=== PATIENT | male | born 1955 | race Caucasian/White ===

== ENCOUNTER 2021-05-24 09:51 | Emergency (ER) | payer BC, OTHER ==
[2021-05-24] MEDS ORDERED: NA CHLORIDE 0.9% 1,000 ML ONE ×2 (11:13→13:21)
[2021-05-24] MEDS ORDERED: FAMOTIDINE 20 MG/2 ML VIAL IV ONE (11:13)
[2021-05-24 11:17] LABS: Absolute Lymphocytes (CBC) 0.9 K/uL (0.7-4.9); Basophils % 0.6 % (0-1.3); Hematocrit 45.3 % (39.6-49.0); MPV 7.8 fL (7.6-11.3); RBC Red Blood Cell Count 4.96 M/uL (4.33-5.43)
[2021-05-24 11:30] LABS: ALT/SGPT 27 U/L (12-78); AST/SGOT 18 U/L (15-37); Albumin 3.5 g/dL (3.4-5.0); Alkaline Phosphatase 81 U/L (45-117); BUN Blood Urea Nitrogen 16 mg/dL (7-18); Bicarbonate 24 mmol/L (21-32); Bilirubin Direct 0.1 mg/dL (0-0.2); Bilirubin Total 0.5 mg/dL (0.2-1.0); Ferritin 226.1 ng/mL (26-388); Glucose Level 107 mg/dL (74-106); Magnesium 2.3 mg/dL (1.8-2.4); NT PRO-BNP 151 pg/mL (<125); Potassium 3.5 mmol/L (3.5-5.1); Protein, Total 7.7 g/dL (6.4-8.2); Sodium Level 135 mmol/L (136-145); Troponin (Emerg Dept Use Only) < 0.02 ng/mL (0.0-0.045)
[2021-05-24 12:08] LABS: Urine Blood Negative (Negative); Urine Glucose Negative (Negative); Urine Protein Negative (Negative)
[2021-05-24] MEDS ORDERED: CEFTRIAXONE/SWI 1gm 1 GM/10 ML SYR ONE (12:37)
[2021-05-24] MEDS ORDERED: AZITHROMYCIN 250 MG TAB ONE (12:39)
--- NOTE | 2021-05-24 13:01 | RAD REPORT ---
EXAM DESCRIPTION: Shanae Single View05/24/2021 12:31 pm CLINICAL HISTORY: cough COMPARISON: none FINDINGS: The lungs appear clear of acute infiltrate. The heart is normal size IMPRESSION: No acute abnormalities displayed
[2021-05-24] MEDS ORDERED: ACETAMINOPHEN 500 MG TAB ONE (13:04)
[2021-05-24] MEDS ORDERED: AMOX/K CLAV 875 MG TAB ONE (13:21)
--- NOTE | 2021-05-24 13:27 | ER ---
Nurse's Notes [facility] Name: Pankaj Schwartz Age: 66 yrs Sex: Male : 1955 Arrival Date: 05/24/2021 Time: 09:54 Bed 11 Private MD: Diagnosis: Fever, unspecified;Acute upper respiratory infection, unspecified;Elevated white blood cell count;Contact with and (suspected) exposure to other viral communicable diseases-Covid;Diarrhea, unspecified;Acute pharyngitis, unspecified Presentation: 05/24 10:24 Chief complaint: Patient states: Last night had chills, loss of appetite, sore throat, vg1 cough and headache. This morning had an episode of diarrhea. Coronavirus screen: Client denies travel out of the [place] in the last 14 days. Client presents with at least one sign or symptom that may indicate coronavirus-19. Standard/surgical mask placed on the client. Ebola Screen: Patient negative for fever greater than or equal to 101.5 degrees Fahrenheit, and additional compatible Ebola Virus Disease symptoms. Initial Sepsis Screen: Does the patient meet any 2 criteria? No. Patient's initial sepsis screen is negative. Does the patient have a suspected source of infection? No. Patient's initial sepsis screen is negative. Risk Assessment: Do you want to hurt yourself or someone else? Patient reports no desire to harm self or others. Onset of symptoms was May 23, 2021. 10:24 Method Of Arrival: Ambulatory vg1 10:24 Acuity: ABRAHAM 3 vg1 Triage Assessment: 10:26 General: Appears in no apparent distress. comfortable, Behavior is calm, cooperative. vg1 Pain: Complains of pain in whole body Pain currently is 7 out of 10 on a pain scale. Quality of pain is described as aching, Pain began 1 day ago. EENT: Reports sore throat. Neuro: Level of Consciousness is awake, alert, obeys commands, Oriented to person, place, time, situation. Cardiovascular: Patient's skin is warm and dry. Respiratory: Airway is patent Respiratory effort is even, unlabored, Breath sounds are clear bilaterally. GI: Reports diarrhea, since yesterday. : No signs and/or symptoms were reported regarding the genitourinary system. Derm: Skin is intact, is healthy with good turgor. Musculoskeletal: Circulation, motion, and sensation intact. Historical: - Allergies: 10:26 No Known Allergies; vg1 - Home Meds: 10:26 Hydrochlorothiazide Oral [Active]; vg1 - PMHx: 10:26 Hypertensive disorder; vg1 - Immunization history:: Adult Immunizations up to date, Client reports receiving the 2nd dose of the Covid vaccine. - Social history:: Smoking status: Patient denies any tobacco usage or history of. Screenin:29 Abuse screen: Denies threats or abuse. Nutritional screening: No deficits noted. vg1 Tuberculosis screening: No symptoms or risk factors identified. Fall Risk No fall in past 12 months (0 pts). No secondary diagnosis (0 pts). IV access (20 points). Ambulatory Aid- None/Bed Rest/Nurse Assist (0 pts). Gait- Normal/Bed Rest/Wheelchair (0 pts) Mental Status- Oriented to own ability (0 pts). Total Escobar Fall Scale indicates No Risk (0-24 pts). Assessment: 10:28 Reassessment: see triage. vg1 12:00 Reassessment: Patient appears in no apparent distress at this time. No changes from vg1 previously documented assessment. Patient and/or family updated on plan of care and expected duration. Pain level reassessed. Patient is alert, oriented x 3, equal unlabored respirations, skin warm/dry/pink. 12:35 Reassessment: pt states chills and body aches, rates pain 4/10. Provider notified. vg1 12:37 Reassessment: Received VO from Dr Hylton to administer 1g of Tylenol PO x1. vg1 Vital Signs: 10:24 BP 115 / 90; Pulse 80; Resp 18; Temp 99.0; Pulse Ox 97% ; Weight 104.33 kg; Height 5 vg1 ft. 10 in. (177.80 cm); Pain 7/10; 12:00 BP 126 / 109; Pulse 80; Resp 18; Pulse Ox 97% ; vg1 12:35 BP 119 / 91; Pulse 84; Resp 20; Temp 101.2; Pulse Ox 98% on R/A; Pain 4/10; vg1 13:00 BP 128 / 83; Pulse 78; Resp 22; Pulse Ox 97% ; vg1 13:41 Temp 100.3; vg1 13:45 Temp 100.3; vg1 10:24 Body Mass Index 33.00 (104.33 kg, 177.80 cm) vg1 ED Course: 09:54 Patient arrived in ED. as 10:22 Misbah Hylton MD is Attending Physician. clem 10:24 Jessie Ku, RN is Primary Nurse. vg1 10:26 Triage completed. vg1 10:29 Patient has correct armband on for positive identification. Bed in low position. Call vg1 light in reach. Side rails up X 1. 10:29 Arm band placed on. vg1 10:45 Initial lab(s) drawn, by me, sent to lab. Inserted saline lock: 20 gauge in right vg1 forearm, using aseptic technique. Blood collected. 10:45 COVID swab sent to lab. Flu and/or RSV swab sent to lab. vg1 12:20 Strep swab sent to lab. vg1 12:25 First set of blood cultures drawn by me. vg1 12:30 Chest Single View XRAY In Process Unspecified. EDMS 12:40 Second set of blood cultures drawn by ED staff. vg1 13:26 Aubrey Couch MD is Referral Physician. [facility] 13:41 No provider procedures requiring assistance completed. IV discontinued, intact, vg1 bleeding controlled, No redness/swelling at site. Pressure dressing applied. Administered Medications: 11:03 Drug: NS 0.9% 500 ml Route: IV; Rate: bolus; Site: right forearm; vg1 12:15 Follow up: IV Status: Completed infusion; IV Intake: 500ml vg1 11:05 Drug: Pepcid (famotidine) 20 mg Route: IVP; Site: right forearm; vg1 13:46 Follow up: Response: No adverse reaction vg1 12:15 Drug: NS 0.9% 1000 ml Route: IV; Rate: 125 ml/hr; Site: right forearm; vg1 13:46 Follow up: IV Status: Completed infusion; IV Intake: 1000ml vg1 12:29 Drug: Zithromax (azithromycin) 500 mg Route: PO; vg1 13:45 Follow up: Response: No adverse reaction vg1 12:30 Drug: Rocephin (cefTRIAXone) 2 grams Route: IV; Rate: per protocol; Site: right forearm;vg1 13:06 Follow up: Response: No adverse reaction vg1 13:45 Follow up: IV Status: Completed infusion; IV Intake: 10ml vg1 12:44 Drug: Tylenol 1000 mg Route: PO; vg1 13:45 Follow up: Temp 100.3; Response: No adverse reaction vg1 13:00 Drug: NS 0.9% 1000 ml Route: IV; Rate: 1 bolus; Site: right forearm; vg1 13:46 Follow up: IV Status: Completed infusion; IV Intake: 500ml vg1 13:01 Drug: Augmentin (Amoxicillin-Clavulanate) 875 mg Route: PO; vg1 13:45 Follow up: Response: No adverse reaction vg1 Intake: 12:15 IV: 500ml; Total: 500ml. vg1 13:45 IV: 10ml; Total: 510ml. vg1 13:46 IV: 500ml; Total: 1010ml. vg1 13:46 IV: 1000ml; Total: 2010ml. vg1 Outcome: 13:26 Discharge ordered by . clem 13:44 Discharged to home ambulatory. vg1 13:44 Condition: stable 13:44 Discharge instructions given to patient, Instructed on discharge instructions, follow up and referral plans. medication usage, Demonstrated understanding of instructions, follow-up care, medications, Prescriptions given X 3. 13:45 Patient left the ED. vg1 Signatures: Dispatcher [employer] Misbah Gotti MD MD cha Martinez, Amelia as Garcia, Victoria, RN RN vg1
--- NOTE | 2021-05-24 13:27 | EDPHYS ---
Physician Documentation [facility] Name: Pankaj Schwartz Age: 66 yrs Sex: Male : 1955 Arrival Date: 05/24/2021 Time: 09:54 Bed 11 Private MD: LUIS CARLOS Physician Misbah Hylton HPI: 05/24 10:47 This 66 yrs old Male presents to ER via Ambulatory with complaints of r/o clem covid. 10:47 cough , malaise. Onset: The symptoms/episode began/occurred 2 day(s) ago. Severity of clem symptoms: At their worst the symptoms were mild in the emergency department the symptoms are unchanged. The patient has not experienced similar symptoms in the past. Historical: - Allergies: 10:26 No Known Allergies; vg1 - Home Meds: 10:26 Hydrochlorothiazide Oral [Active]; vg1 - PMHx: 10:26 Hypertensive disorder; vg1 - Immunization history:: Adult Immunizations up to date, Client reports receiving the 2nd dose of the Covid vaccine. - Social history:: Smoking status: Patient denies any tobacco usage or history of. ROS: 10:48 Constitutional: Negative for fever, chills, and weight loss, Eyes: Negative for injury, clem pain, redness, and discharge, ENT: Negative for injury, pain, and discharge, Neck: Negative for injury, pain, and swelling, Cardiovascular: Negative for chest pain, palpitations, and edema, Respiratory: Negative for shortness of breath, cough, wheezing, and pleuritic chest pain, Back: Negative for injury and pain, : Negative for injury, bleeding, discharge, and swelling, MS/Extremity: Negative for injury and deformity, Skin: Negative for injury, rash, and discoloration, Neuro: Negative for headache, weakness, numbness, tingling, and seizure, Psych: Negative for depression, anxiety, suicide ideation, homicidal ideation, and hallucinations, Allergy/Immunology: Negative for hives, rash, and allergies, Endocrine: Negative for neck swelling, polydipsia, polyuria, polyphagia, and marked weight changes, Hematologic/Lymphatic: Negative for swollen nodes, abnormal bleeding, and unusual bruising. 10:48 Abdomen/GI: Positive for diarrhea. Exam: 10:48 Constitutional: This is a well developed, well nourished patient who is awake, alert, clem and in no acute distress. Head/Face: Normocephalic, atraumatic. Eyes: Pupils equal round and reactive to light, extra-ocular motions intact. Lids and lashes normal. Conjunctiva and sclera are non-icteric and not injected. Cornea within normal limits. Periorbital areas with no swelling, redness, or edema. ENT: Nares patent. No nasal discharge, no septal abnormalities noted. Tympanic membranes are normal and external auditory canals are clear. Oropharynx with no redness, swelling, or masses, exudates, or evidence of obstruction, uvula midline. Mucous membranes moist. Neck: Trachea midline, no thyromegaly or masses palpated, and no cervical lymphadenopathy. Supple, full range of motion without nuchal rigidity, or vertebral point tenderness. No Meningismus. Chest/axilla: Normal chest wall appearance and motion. Nontender with no deformity. No lesions are appreciated. Cardiovascular: Regular rate and rhythm with a normal S1 and S2. No gallops, murmurs, or rubs. Normal PMI, no JVD. No pulse deficits. Respiratory: Lungs have equal breath sounds bilaterally, clear to auscultation and percussion. No rales, rhonchi or wheezes noted. No increased work of breathing, no retractions or nasal flaring. Abdomen/GI: Soft, non-tender, with normal bowel sounds. No distension or tympany. No guarding or rebound. No evidence of tenderness throughout. Back: No spinal tenderness. No costovertebral tenderness. Full range of motion. Male : Normal genitalia with no discharge or lesions. Skin: Warm, dry with normal turgor. Normal color with no rashes, no lesions, and no evidence of cellulitis. MS/ Extremity: Pulses equal, no cyanosis. Neurovascular intact. Full, normal range of motion. Neuro: Awake and alert, GCS 15, oriented to person, place, time, and situation. Cranial nerves II-XII grossly intact. Motor strength 5/5 in all extremities. Sensory grossly intact. Cerebellar exam normal. Normal gait. Psych: Awake, alert, with orientation to person, place and time. Behavior, mood, and affect are within normal limits. 11:03 ECG was reviewed by the Attending Physician. [facility] Vital Signs: 10:24 BP 115 / 90; Pulse 80; Resp 18; Temp 99.0; Pulse Ox 97% ; Weight 104.33 kg; Height 5 vg1 ft. 10 in. (177.80 cm); Pain 7/10; 12:00 BP 126 / 109; Pulse 80; Resp 18; Pulse Ox 97% ; vg1 12:35 BP 119 / 91; Pulse 84; Resp 20; Temp 101.2; Pulse Ox 98% on R/A; Pain 4/10; vg1 13:00 BP 128 / 83; Pulse 78; Resp 22; Pulse Ox 97% ; vg1 13:41 Temp 100.3; vg1 13:45 Temp 100.3; vg1 10:24 Body Mass Index 33.00 (104.33 kg, 177.80 cm) vg1 MDM: 10:22 Patient medically screened. [facility] 10:49 Differential diagnosis: Nonspecific abd pain, viral gastroenteritis, gastroenteritis. [facility] Data reviewed: vital signs, EMS record, lab test result(s), EKG, radiologic studies, plain films. Data interpreted: personnel monitor: rate is 80 beats/min, rhythm is regular, Pulse oximetry: on room air is 97 %. Test interpretation: by ED physician or midlevel provider: ECG, plain radiologic studies. Counseling: I had a detailed discussion with the patient and/or guardian regarding: the historical points, exam findings, and any diagnostic results supporting the discharge/admit diagnosis, lab results, radiology results. 05/24 10:40 Order name: Basic Metabolic Panel [facility] 05/24 10:40 Order name: CBC with Diff [facility] 05/24 10:40 Order name: LFT's [facility] 05/24 10:40 Order name: Magnesium [facility] 05/24 10:40 Order name: NT PRO-BNP [facility] 05/24 10:40 Order name: Troponin (emerg Dept Use Only) [facility] 05/24 10:40 Order name: Sed Rate [facility] 05/24 10:40 Order name: Ferritin; Complete Time: 11:42 [facility] 05/24 10:40 Order name: CRP; Complete Time: 11:42 [facility] 05/24 10:40 Order name: Flu; Complete Time: 11:42 [facility] 05/24 10:40 Order name: Basic Metabolic Panel; Complete Time: 11:42 [facility] 05/24 10:40 Order name: CBC with Automated Diff; Complete Time: 12:12 [facility] 05/24 10:40 Order name: Liver (Hepatic) Function; Complete Time: 11:42 [facility] 05/24 10:40 Order name: Magnesium; Complete Time: 11:42 [facility] 05/24 10:40 Order name: NT PRO-BNP; Complete Time: 11:42 [facility] 05/24 10:40 Order name: Troponin (Emerg Dept Use Only); Complete Time: 11:42 [facility] 05/24 10:40 Order name: Sedimentation Rate, Westergren; Complete Time: 12:12 [facility] 05/24 11:43 Order name: Urine Culture [facility] 05/24 11:54 Order name: SARS-COV-2 RT PCR; Complete Time: 11:55 [facility] 05/24 11:54 Order name: Chest Single View XRAY; Complete Time: 13:25 [facility] 05/24 11:55 Order name: Blood Culture Adult (2) [facility] 05/24 11:55 Order name: Lactate [facility] 05/24 11:55 Order name: Strep; Complete Time: 12:51 [facility] 05/24 11:55 Order name: Blood Culture [facility] 05/24 12:08 Order name: Urine Dipstick-Ancillary; Complete Time: 12:12 [facility] 05/24 12:51 Order name: Throat Culture [facility] 05/24 10:40 Order name: EKG; Complete Time: 10:40 [facility] 05/24 10:40 Order name: Cardiac monitoring; Complete Time: 11:07 [facility] 05/24 10:40 Order name: EKG - Nurse/Tech; Complete Time: 11:07 [facility] 05/24 10:40 Order name: IV Saline Lock; Complete Time: 10:51 [facility] 05/24 10:40 Order name: Labs collected and sent; Complete Time: 10:51 [facility] 05/24 10:40 Order name: O2 Per Protocol; Complete Time: 10:51 [facility] 05/24 10:40 Order name: O2 Sat Monitoring; Complete Time: 10:51 [facility] 05/24 11:43 Order name: Urine Dipstick-Ancillary (obtain specimen); Complete Time: 12:15 [facility] EC:03 Rate is 74 beats/min. Rhythm is regular. QRS [place] is Normal. MD interval is normal. QRS clem interval is normal. QT interval is normal. No Q waves. T waves are Normal. No ST changes noted. Clinical impression: NSR w/ Non-specific ST/T Changes and No evidence of ischemia. Interpreted by me. Reviewed by me. Administered Medications: 11:03 Drug: NS 0.9% 500 ml Route: IV; Rate: bolus; Site: right forearm; vg1 12:15 Follow up: IV Status: Completed infusion; IV Intake: 500ml vg1 11:05 Drug: Pepcid (famotidine) 20 mg Route: IVP; Site: right forearm; vg1 13:46 Follow up: Response: No adverse reaction vg1 12:15 Drug: NS 0.9% 1000 ml Route: IV; Rate: 125 ml/hr; Site: right forearm; vg1 13:46 Follow up: IV Status: Completed infusion; IV Intake: 1000ml vg1 12:29 Drug: Zithromax (azithromycin) 500 mg Route: PO; vg1 13:45 Follow up: Response: No adverse reaction vg1 12:30 Drug: Rocephin (cefTRIAXone) 2 grams Route: IV; Rate: per protocol; Site: right forearm;vg1 13:06 Follow up: Response: No adverse reaction vg1 13:45 Follow up: IV Status: Completed infusion; IV Intake: 10ml vg1 12:44 Drug: Tylenol 1000 mg Route: PO; vg1 13:45 Follow up: Temp 100.3; Response: No adverse reaction vg1 13:00 Drug: NS 0.9% 1000 ml Route: IV; Rate: 1 bolus; Site: right forearm; vg1 13:46 Follow up: IV Status: Completed infusion; IV Intake: 500ml vg1 13:01 Drug: Augmentin (Amoxicillin-Clavulanate) 875 mg Route: PO; vg1 13:45 Follow up: Response: No adverse reaction vg1 Disposition Summary: 05/24/21 13:26 Discharge Ordered Location: Home clem Problem: new clem Symptoms: have improved clem Condition: Stable clem Diagnosis - Fever, unspecified clem - Acute upper respiratory infection, unspecified clem - Elevated white blood cell count clem - Contact with and (suspected) exposure to other viral communicable diseases - Covid clem - Diarrhea, unspecified clem - Acute pharyngitis, unspecified clem Followup: clem - With: Private Physician - When: 2 - 3 days - Reason: Recheck today's complaints, Continuance of care, Re-evaluation by your physician Followup: clem - With: - When: 2 - 3 days - Reason: Recheck today's complaints, Re-evaluation by your physician Discharge Instructions: - Discharge Summary Sheet clem - Food Choices to Help Relieve Diarrhea, Adult clem - Diarrhea, Adult clem - Fever, Adult clem - Upper Respiratory Infection, Adult clem - Cool Mist Vaporizer clem - Upper Respiratory Infection, Adult, [id number] clem - Diarrhea, Adult, [id number]-cr-[id number] clem - COVID-19 [facility] Forms: - Medication Reconciliation Form [facility] - Thank You Letter clem - Antibiotic Education clem - Prescription Opioid Use [facility] - Work release form vg1 Prescriptions: - Pepcid 20 mg Oral Tablet - take 1 tablet by ORAL route every 12 hours for 15 days; 30 tablet; Refills: 0, [facility] Product Selection Permitted - Zithromax 500 mg Oral Tablet - take 1 tablet by ORAL route once daily for 5 days; 5 tablet; Refills: 0, [facility] Product Selection Permitted - Augmentin 875-125 mg Oral Tablet - take 1 tablet by ORAL route every 12 hours for 7 days; 14 tablet; Refills: 0, [facility] Product Selection Permitted Signatures: Dispatcher [employer] EDMisbah Dozier MD MD cha Garcia, Victoria, RN RN vg1 Corrections: (The following items were deleted from the chart) 11:02 10:40 Chest Single View+RAD.RAD.BRZ ordered. EDMS EDMS 11:03 10:40 CORONAVIRUS+MR.LAB.BRZ ordered. EDMS EDMS
[2021-05-24 13:55] VITALS: BP 128/83; O2SAT 97
[2021-05-24 13:56] VITALS: TEMP 100.3
--- NOTE | 2021-05-25 10:42 | EKG ---
Test Date: 2021-05-24 Test Time: 10:59:10 Qa Intern: JIMENEZ MEASUREMENT RESULTS: Intervals: Rate: 74 [place]: 146 QRSD: 150 QT: 440 QTc: 488 [place]: P: 59 [place]: 146 QRS: -68 T: 34 INTERPRETIVE STATEMENTS: Normal sinus rhythm Left axis deviation Right bundle branch block Abnormal ECG No previous ECG available for comparison Electronically Signed On 05-25-21 10:39:56 CDT by Oleg Diana
== END 2021-05-24 13:45 | disposition home or self-care (01) ==
LOC: ER 09:51
DX: J06.9 Acute upper respiratory infection, unspecified (principal); D72.829 Elevated white blood cell count, unspecified; R19.7 Diarrhea, unspecified; J02.9 Acute pharyngitis, unspecified; I10 Essential (primary) hypertension; Z20.822 Contact with and (suspected) exposure to COVID-19
CPT/HCPCS: 96365; 96361; 93005; 87040 ×2; 87070; 87088; 85025; 87086; 80048; 36415; 83735; 80076; 87081; 83605; 85652; 81003; 84484; 82728; 83880; 86140; 87804 ×2; 71045; 96375; 99284; U0003; J0696; J7030 ×2

== ENCOUNTER 2025-01-06 13:05 | Inpatient (IN) | payer OTHER ==
--- OUTSIDE RECORDS SUMMARY | 2025-01-06 13:09 | XMS REPORT | Continuity of Care Document ---
Author Name Unknown Address [address] [facility]. [address] [place] [address] [facility] Address [address] [facility] [address] [place] [address] Care Team Providers Care Neurology Physician Name Role Phone Suki Rasmussen Primary Care Physician [phone] Suki Salas Attending Clinician Unavailable OTIS HARRIS Attending Clinician Unavailable Otis Harris MD Attending Clinician [phone] Doctor Unassigned, [place] Attending Clinician U kaylee Nurse, [facility] Surgery Gu Attending Clinician Unadonna montgomery Pob, [facility] Lab Main Attending Clinician UnavailEULOGIO Srinivasan Attending Clinician Unavail able Eulogio Ya DPM Attending Clinician [phone] ANSLEY DOMINGUEZ Attending Clinician UnavailJORGE Delgado Attending Clinician Treasure Jorge Miller MD Attending Clinician Doctor Unassigned, [place] Attending Clinician U BHAKTI Barnhart Attending Clinician Unavailable Bhakti Schrader Attending Clinician [phone] Unknown, Attending Attending Clinician UnavailOtis Sanchez MD Attending Clinician [phone], [facility] Attending Clinician Unavailable SALMA DAILEY Attending Clinician Unavailabl Salma Larios Attending Clinician [phone] Darby Dueñas Attending Clinician [phone] DARBY AGARWAL Attending Clinician Unavailable TRESA TATE Attending Clinician Unavailable Tresa Tate PA-C Attending Clinician Ansley Tong Attending Clinician [phone] Jorge Rosales MD Attending Clinician Lab, Ang - Dereck Attending Clinician Unavailable AMBREENTERAA Attending Clinician Unavailable OTIS HARRIS Admitting Clinician Unavailable Otis Harris MD Admitting Clinician [phone] ANSLEY DOMINGUEZ Admitting Clinician Unavaila mir TORREZ Admitting Clinician Unavailable Payers Payer Name Policy Type Policy Number Effective Date Expirati on Date Source [employer] MEDICARE ADV PPO [id number] 2024 00:00:00 [employer] MEDICARE OON Medicare [id number] 2022 00:00:00 Problems Condition Name Condition Details Condition Category Status Onset Date Resolution Date Last Treatment Date Treating Clinician Comments Source 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 Disease Active 2023-10 00:00: 00 [facility] [id number] Post-traum atic osteoarthr itis, left ankle and foot Problem [facility] 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 Problem [facility] Acquired hallux rigidus Hallux rigidus, left foot Problem [facility] Allergies, Adverse Reactions, Alerts Allergy Name Allergy Type Status Severity Reaction(s) Onset Date Inactive Date Treating Clinician Comments Source NO KNOWN ALLERGIE S Drug Class Active [facility] Social History Social Habit Start Date Stop Date Quantity Comments Source Gender identity Jayesh bayron Iglesias Sexual orientation M emobayron Iglesias Sex Assigned At [facility] History of tobacco use Cigar Smoker [facility] Alcoholic beverage intake 2024-09-21 00:00:00 2024-09-21 00:00:00 2.14 /d [facility] Tobacco use and exposure 2024-09-13 00:00:00 2024-09-13 00:00:00 Smokeless tobacco non-user [facility] Alcohol intake 2023-12-27 00:00:00 2023-12-27 00:00:00 2.14 /d [facility] History of Social function 2023-08-18 00:00:00 2023-08-18 00:00:00 [facility] Exposure to SARS-CoV-2 (event) 2023-02-07 00:00:00 2023-02-17 15:34:00 Not sure [facility] Cigarettes smoked current (pack per day) - Reported 2023-01-18 00:00:00 2023-01-18 00:00:00 [facility] Smoking Status Start Date Stop Date Source Tobacco smoking consumption unknown [facility] Occasional tobacco smoker 2024-09-13 00:00:00 [facility] Never Smoker [facility] Ex-smoker 2024-02-24 00:00:00 2024-02-24 00:00:00 [facility] Medications Ordered Medication Name Filled Medication Name Start Date Stop Date Current Medication? Ordering Clinician Indication Dosage Frequency Signature (SIG) Comments Components Source tamsulosin 0.4 mg 24 hr capsule 11-30 00:00: 00 Yes [id number] 01 .4mg Take 1 capsule by mouth every morning and evening. [facility] lactated ringers IV infusion 500 mL 2023-10 16:00: 00 09-20 19:01 :41 No 500mL at 42 mL/hr, 500 mL, IV Infusion, CONTINUOUS , Starting on Wed09/20/24 at 1000, Until Wed09/20/24 at 1301, Routine, PACU [facility] FENTanyl (PF) (SUBLIMAZE) injection 25 mcg 2023-10 15:56: 36 09-20 19:01 :41 No 25ug 25 mcg, Slow IV Push, Q5MIN PRN, 4 doses, Starting on Wed09/20/24 at 0956, Until Wed09/20/24 at 1301, Routine, Pain (scale 7-10), PACU [facility] ondansetron (ZOFRAN (PF)) injection 4 mg 2023-10 15:56: 33 09-20 19:01 :41 No 4mg 4 mg, Slow IV Push, Q4HPRN, 1 dose, Starting on Wed09/20/24 at 0956, Until Wed09/20/24 at 1301, Administer over 2-5 Minutes, 2 mL, DSU Recovery [facility] lidocaine (XYLOCAINE) 2 % jelly URO-JET 2023-10 15:18: 00 09-20 16:00 :01 No PRN, Starting on Wed09/20/24 at 0918, Until Wed09/20/24 at 1000, Routine, Intra-op [facility] sodium chloride 0.9 % irrigation solution 2023-10 14:54: 00 09-20 16:00 :01 No PRN, Starting on Wed09/20/24 at 0854, Until Wed09/20/24 at 1000, Intra-op [facility] cephALEXin 250 mg capsule 2023-10 00:00: 00 09-26 05:59 :00 No [id number] 500mg Take 2 capsules by mouth every 12 (twelve) hours for 5 days. [facility] tamsulosin 0.4 mg 24 hr capsule 2023-10-19 00:00: 00 11-27 00:00 :00 No [id number] 01 .4mg Take 1 capsule by mouth every morning and evening. [facility] tamsulosin 0.4 mg 24 hr capsule 8-28 00:00: 00 08-21 00:00 :00 No .4mg Take 1 capsule by mouth every morning and evening. [facility] dexamethaso ne (DECADRON) injection 10 mg 6-04 22:15: 00 03-07 21:17 :00 No [id number] 10mg [facility]iver [facility] ketorolac (TORADOL) injection 30 mg 03-07 22:00: 00 03-07 21:14 :00 No [id number] 30mg [facility] iopamidol (ISOVUE 370-500 mL) injection 120 mL 03-02 21:15: 00 03-02 20:25 :00 No [id number] 120mL 120 mL, Intravenou s, ONCE, 1 dose, On Wed03/02/24 at 1615, [facility]ine [facility] mg tablet 03-01 11:56: 16 09-20 00:00 :00 No 500mg Take 1 tablet by mouth 4 (four) times daily. [facility] ketorolac (TORADOL) injection 30 mg 02-28 16:15: 02-28 15:36 :00 No [id number] 30mg 30 mg, Intramuscu lar, ONCE, 1 dose, On Wed02/29/24 at 1115, Routine [facility] tamsulosin 0.4 mg 24 hr capsule 02-28 00:00: 00 Yes .4mg Take 1 capsule by mouth every morning and evening. [facility] traMADoL 50 mg tablet 02-28 00:00: 00 03-04 04:59 :00 No [id number] 50mg Take 1 tablet by mouth every 6 (six) hours as needed for Pain (scale 4-6) for up to 3 days. Indication s: acute pain [facility] mupirocin 2 % ointment 02-23 00:00: 00 03-06 04:59 :00 No [id number] Apply to area(s) 3 (three) times daily for 10 days. [facility] cephALEXin 500 mg capsule 02-23 00:00: 00 03-01 04:59 :00 No [id number] 500mg Take 1 capsule by mouth 4 (four) times daily for 5 days. [facility] losartan 25 mg tablet 12 00:00: 00 Yes 25mg Take 1 tablet by mouth in the morning. [facility] ketorolac (TORADOL) injection 30 mg 01-06 17:45: 00 01-06 17:06 :00 No [id number] 30mg 30 mg, Intramuscu lar, ONCE, 1 dose, On Wed01/07/24 at 1245, Routine [facility] dexamethaso ne sod phos PF injection 10 mg 01-06 17:45: 00 01-06 17:17 :00 No [id number] 10mg 10 mg, Intramuscu lar, ONCE, 1 dose, On Wed01/07/24 at 1245, 1 mL [facility] ibuprofen 800 mg tablet 01-06 11:44: 34 Yes 800mg Take 1 tablet by mouth in the morning and 1 tablet in the evening. [facility] predniSONE 20 mg tablet -25 00:00: 00 Yes [id number] Take one tablet daily for 5 days, then take half tablet daily for 6 days. [facility] Bactrim DS 800-160 MG Bactrim DS 800-160 MG 3-19 00:00: 00 No 1{table t} Bactrim DS 800-160 MG ibuprofen 800 mg tablet 2-21 16:20: 21 Yes 800mg Take 1 tablet by mouth in the morning and 1 tablet in the evening. [facility] gabapentin 100 mg capsule 2-12 00:00: 00 Yes 100mg Take 1 capsule by mouth in the morning and 1 capsule in the evening. [facility] TAMSULOSIN 0.4 mg 24 hr capsule 1-02 00:00: 00 02-28 00:00 :00 No [id number] 01 .4mg TAKE 1 CAPSULE IN THE MORNING AND EVENING [facility] iopamidol (ISOVUE 370-500 mL) injection 120 mL 2022-10 0 19:00: 00 07-26 18:51 :00 No [id number] 120mL 120 mL, Intravenou s, ONCE, 1 dose, On Wed07/26/23 at 1400, Routine [facility] gentamicin injection 160 mg 2022-10 017 14:15: 00 07-20 14:12 :00 No [id number] 160mg Univer [facility] iopamidol (ISOVUE 370-500 mL) injection 100 mL 05-03 14:25: 00 05-03 14:31 :00 No [id number] 100mL 100 mL, Intravenou s, ONCE, 1 dose, On Wed05/03/23 at 0945, Routine [facility] tamsulosin (FLOMAX) 0.4 mg 24 hr capsule 02-17 00:00: 00 10-05 00:00 :00 No [id number] 01 .4mg Take 1 capsule by mouth in the morning and 1 capsule in the evening. [facility] ibuprofen 800 mg tablet 01-18 08:19: 48 Yes 800mg Take 1 tablet by mouth in the morning and 1 tablet in the evening. [facility] famotidine 20 mg tablet 01-07 00:00: 00 01-18 00:00 :00 No 1 tablet Orally 3 times a day for 30 days [facility] atorvastati n 80 mg tablet 05-05 00:00: 00 Yes 80mg Take 1 tablet by mouth in the morning. [facility] hydroCHLORO thiazide 25 mg tablet 04-09 00:00: 00 Yes 12.5mg Take 0.5 tablets by mouth in the morning. [facility] Cefdinir 300 MG Cefdinir 300 MG No Cefdinir 300 MG IBU 800 MG IBU 800 MG No IBU 800 MG Vital Signs Vital Name Observation Time Observation Value Comments S [facility] Heart rate 2024-09-20 16:30:00 65 /min [facility] Oxygen saturation in Arterial blood by Pulse oximetry 2024-09-20 16:30:00 95 /min [facility] Systolic blood pressure 2024-09-20 16:25:00 163 mm[Hg] [facility] Diastolic blood pressure 2024-09-20 16:25:00 91 mm[Hg] [facility] Respiratory rate 2024-09-20 16:25:00 24 /min [facility] Body temperature 2024-09-20 13:24:00 36.44 Munira [facility] Body height 2024-09-20 13:24:00 177.8 cm [facility] Body weight 2024-09-20 13:24:[address] [facility] BMI 2024-09-20 13:24:00 35.15 kg/m2 [facility] Systolic blood pressure 2024-09-20 16:05:00 175 mm[Hg] [facility] Diastolic blood pressure 2024-09-20 16:05:00 96 mm[Hg] [facility] Heart rate 2024-09-20 16:05:00 59 /min [facility] Respiratory rate 2024-09-20 16:05:00 15 /min [facility] Oxygen saturation in Arterial blood by Pulse oximetry 2024-09-20 16:05:00 96 /min [facility] Body temperature 2024-09-20 15:44:00 36.67 Munira [facility] Body height 2024-09-20 13:24:[address] [facility] Body weight 2024-09-20 13:24:[address] [facility] BMI 2024-09-20 13:24:00 35.15 kg/m2 [facility] Systolic blood pressure 2024-09-12 13:59:00 134 mm[Hg] [facility] Diastolic blood pressure 2024-09-12 13:59:00 77 mm[Hg] [facility] Heart rate 2024-09-12 13:59:00 61 /min [facility] Body temperature 2024-09-12 13:59:00 36.78 Munira [facility] Respiratory rate 2024-09-12 13:59:00 20 /min [facility] Body height 2024-09-12 13:59:00 177.8 cm [facility] Body weight 2024-09-12 13:59:[address] [facility] BMI 2024-09-12 13:59:00 36.01 kg/m2 [facility] Oxygen saturation in Arterial blood by Pulse oximetry 2024-09-12 13:59:00 96 /min [facility] Systolic blood pressure 2024-04-25 14:34:00 134 mm[Hg] [facility] Diastolic blood pressure 2024-04-25 14:34:00 76 mm[Hg] [facility] Heart rate 2024-04-25 14:34:00 60 /min [facility] Body temperature 2024-04-25 14:34:00 36.89 Munira [facility] Body height 2024-04-25 14:34:[address] [facility] Body weight 2024-04-25 14:34:[address] [facility] BMI 2024-04-25 14:34:00 35.41 kg/m2 [facility] Oxygen saturation in Arterial blood by Pulse oximetry 2024-04-25 14:34:00 98 /min [facility] Systolic blood pressure 2024-03-07 20:59:00 146 mm[Hg] [facility] Diastolic blood pressure 2024-03-07 20:59:00 80 mm[Hg] [facility] Heart rate 2024-03-07 20:58:00 66 /min [facility] Body temperature 2024-03-07 20:58:00 36.72 Muinra [facility] Respiratory rate 2024-03-07 20:58:00 17 /min [facility] Body weight 2024-03-07 20:58:[address] [facility] BMI 2024-03-07 20:58:00 35.15 kg/m2 [facility] Oxygen saturation in Arterial blood by Pulse oximetry 2024-03-07 20:58:00 96 /min [facility] Systolic blood pressure 2024-02-29 15:13:00 156 mm[Hg] [facility] Diastolic blood pressure 2024-02-29 15:13:00 79 mm[Hg] [facility] Heart rate 2024-02-29 15:12:00 69 /min [facility] Body temperature 2024-02-29 15:12:00 36.5 Munira [facility] Respiratory rate 2024-02-29 15:12:00 20 /min [facility] Body weight 2024-02-29 15:12:00 112.991 kg [facility] BMI 2024-02-29 15:12:00 35.74 kg/m2 [facility] Oxygen saturation in Arterial blood by Pulse oximetry 2024-02-29 15:12:00 98 /min [facility] Systolic blood pressure 2024-02-24 20:59:00 145 mm[Hg] [facility] Diastolic blood pressure 2024-02-24 20:59:00 80 mm[Hg] [facility] Heart rate 2024-02-24 20:59:00 61 /min [facility] Body temperature 2024-02-24 20:58:00 36.44 Munira [facility] Respiratory rate 2024-02-24 20:58:00 16 /min [facility] Body height 2024-02-24 20:58:[address] [facility] Body weight 2024-02-24 20:58:[address] [facility] BMI 2024-02-24 20:58:00 35.87 kg/m2 [facility] Oxygen saturation in Arterial blood by Pulse oximetry 2024-02-24 20:58:00 96 /min [facility] Systolic blood pressure 2024-01-07 16:43:00 118 mm[Hg] [facility] Diastolic blood pressure 2024-01-07 16:43:00 68 mm[Hg] [facility] Heart rate 2024-01-07 16:43:00 77 /min [facility] Body temperature 2024-01-07 16:43:00 36.28 Munira [facility] Respiratory rate 2024-01-07 16:43:00 18 /min [facility] Body height 2024-01-07 16:43:00 177.8 cm [facility] Body weight 2024-01-07 16:43:00 111.131 kg [facility] BMI 2024-01-07 16:43:00 35.15 kg/m2 [facility] Oxygen saturation in Arterial blood by Pulse oximetry 2024-01-07 16:43:00 98 /min [facility] Systolic blood pressure 2023-11-24 22:24:00 124 mm[Hg] [facility] Diastolic blood pressure 2023-11-24 22:24:00 86 mm[Hg] [facility] Heart rate 2023-11-24 22:24:00 63 /min [facility] Oxygen saturation in Arterial blood by Pulse oximetry 2023-11-24 22:24:00 93 /min [facility] Respiratory rate 2023-11-24 22:21:00 18 /min [facility] Body height 2023-11-24 22:21:00 177.8 cm [facility] Body weight 2023-11-24 22:21:[address] [facility] BMI 2023-11-24 22:21:00 35.87 kg/m2 [facility] Systolic blood pressure 2023-10-26 14:56:00 150 mm[Hg] [facility] Diastolic blood pressure 2023-10-26 14:56:00 83 mm[Hg] [facility] Heart rate 2023-10-26 14:49:00 65 /min [facility] Body temperature 2023-10-26 14:49:00 36.67 Munira [facility] Body height 2023-10-26 14:49:00 177.8 cm [facility] Body weight 2023-10-26 14:49:[address] [facility] BMI 2023-10-26 14:49:00 36.62 kg/m2 [facility] Oxygen saturation in Arterial blood by Pulse oximetry 2023-10-26 14:49:00 95 /min [facility] Systolic blood pressure 2023-08-18 21:55:00 145 mm[Hg] [facility] Diastolic blood pressure 2023-08-18 21:55:00 92 mm[Hg] [facility] Heart rate 2023-08-18 21:49:00 68 /min [facility] Body temperature 2023-08-18 21:49:00 36.56 Munira [facility] Respiratory rate 2023-08-18 21:49:00 18 /min [facility] Body weight 2023-08-18 21:49:00 113.399 kg [facility] BMI 2023-08-18 21:49:00 36.92 kg/m2 [facility] Oxygen saturation in Arterial blood by Pulse oximetry 2023-08-18 21:49:00 96 /min [facility] Body weight 2023-07-20 13:22:00 113.399 kg [facility] BMI 2023-07-20 13:22:00 36.92 kg/m2 [facility] Systolic blood pressure 2023-07-20 13:09:00 155 mm[Hg] [facility] Diastolic blood pressure 2023-07-20 13:09:00 87 mm[Hg] [facility] Heart rate 2023-07-20 13:09:00 63 /min [facility] Body temperature 2023-07-20 13:07:00 36.67 Munira [facility] Respiratory rate 2023-07-20 13:07:00 18 /min [facility] Oxygen saturation in Arterial blood by Pulse oximetry 2023-07-20 13:07:00 96 /min [facility] Systolic blood pressure 2023-04-19 14:53:00 155 mm[Hg] [facility] Diastolic blood pressure 2023-04-19 14:53:00 94 mm[Hg] [facility] Heart rate 2023-04-19 14:53:00 60 [facility] Oxygen saturation in Arterial blood by Pulse oximetry 2023-04-19 14:53:00 97 /min [facility] Body temperature 2023-04-19 14:52:00 36.78 Munira [facility] Respiratory rate 2023-04-19 14:52:00 18 /min [facility] Body height 2023-04-19 14:52:00 175.3 cm [facility] weight 2023-04-19 14:52:00 113.399 kg [facility] BMI 2023-04-19 14:52:00 36.92 kg/m2 [facility] Systolic blood pressure 2023-02-17 20:48:00 151 mm[Hg] [facility] Diastolic blood pressure 2023-02-17 20:48:00 85 mm[Hg] [facility] Heart rate 2023-02-17 20:48:00 61 /min [facility] Oxygen saturation in Arterial blood by Pulse oximetry 2023-02-17 20:48:00 96 /min [facility] Body temperature 2023-02-17 20:46:00 36.94 Munira [facility] Respiratory rate 2023-02-17 20:46:00 16 /min [facility] Body height 2023-02-17 20:46:00 177.8 cm [facility] Body weight 2023-02-17 20:46:[address] [facility] BMI 2023-02-17 20:46:00 35.15 kg/m2 [facility] Systolic blood pressure 2023-01-18 13:22:00 152 mm[Hg] [facility] Diastolic blood pressure 2023-01-18 13:22:00 90 mm[Hg] [facility] Heart rate 2023-01-18 13:21:00 55 /min [facility] Body temperature 2023-01-18 13:21:00 36.72 Munira [facility] Respiratory rate 2023-01-18 13:21:00 16 /min [facility] Body height 2023-01-18 13:21:00 177.8 cm [facility] Body weight 2023-01-18 13:21:[address] [facility] BMI 2023-01-18 13:21:00 35.15 kg/m2 [facility] Oxygen saturation in Arterial blood by Pulse oximetry 2023-01-18 13:21:00 97 /min [facility] Procedures Procedure Date / Time Performed Performing Clinician Source KATHERINE,POST-VOID RES,US,NON-IMAGING 2024-09-21 15:40[facility] 2024-09-20 14:55:00 Otis Harris [facility] [id number] - [place] LASER ENUCLEATION PROSTATE W/MORCELLATION 2024-09-20 14:11:00 Louann [facility] POCT URINALYSIS AUTO 2024-09-12 14:13:00 Jossie Harris [facility] KATHERINE,POST-VOID RES,US,NON-IMAGING 2024-09-12 00:00:00 Louann [facility] XR WRIST 3+ VW RIGHT 2024-03-07 21:14:31 Pebbles Cobian [facility] XR HAND 3+ VW RIGHT 2024-03-07 21:14:11 Bhakti Cobian [facility] CT ABDOMEN PELVIS W WO CONTRAST 2024-03-02 20:24:32 Louann [facility] POCT URINALYSIS 2024-02-29 00:00:00 Salma Dailey [facility] POCT URINALYSIS AUTO 2023-11-24 22:22:00 Vincenzo Dominguez [facility] KATHERINE,POST-VOID RES,US,NON-IMAGING 2023-11-24 22:21:00 Ansley Dominguez [facility] POCT URINALYSIS AUTO 2023-08-18 22:08:00 Vincenzo Dominguez [facility] POCT URINALYSIS AUTO 2023-07-20 13:23:00 Jossie Harris [facility] DISCLOSURE AND CONSENT, MEDICAL AND SURGICAL PROCEDURES 2023-07-20 05:01:00 Doctor Unassigned, [place] [facility] HB CREATININE SERUM/BLOOD FOR IMAGING 2023-05-03 14:11:00 Ansley Dominguez [facility] INSURANCE CORRESPONDENCE 2023-04-27 05:01:00 Doc tor Unassigned, [place] [facility] POCT URINALYSIS AUTO 2023-04-19 14:59:00 Vincenzo Dominguez [facility] POCT URINALYSIS AUTO 2023-01-18 12:38:00 Vincenzo Dominguez [facility] REFERRAL- REQUEST/RESPONSE 2023-01-05 05:01:00 Doctor Unassigned, [place] [facility] Encounters Start Date/Time End Date/Time Encounter Type Admission Type Attending [facility] Facility Care Department Encounter ID Source 2024-02-29 11:24:01 Outpatient Vincenzo Salasielle [facility] [id number] [facility] 2024-12-13 16:15:00 2024-12-13 16:15:00 Outpatient OTIS [facility] [id number] [facility] 2024-11-27 00:00:00 2024-11-30 15:18:43 Refill Otis Harris [facility] [id number] [facility] 2024-09-13 00:00:00 2024-10-14 18:15:54 Patient Secure Msg Doctor Unassigned, [place] Doctor Unassigned, [place] [facility] [id number] [facility] 2024-09-21 09:00:00 2024-09-21 10:00:00 Nurse Visit Nurse, Adc Surgery Otis Harris Nurse, Adc Surgery [facility] [id number] [facility] 2024-09-21 09:00:00 2024-09-21 09:00:00 Outpatient OTIS [facility] [id number] [facility] 2024-09-20 07:21:00 2024-09-20 10:50:00 [id number] 2024-09-20 07:21:00 2024-09-20 10:50:00 Hospital Encounter Louann Otis [facility] [id number] [facility] 2024-09-20 08:15:00 2024-09-20 10:05:00 Surgery [facility] [facility] 1.2.840.114 350.1.13.10 4.2.7.2.686 [id number] [facility] 2024-09-14 00:00:00 2024-09-15 17:47:24 Telephone Louann [facility] 1.2.840.114 350.1.13.10 4.2.7.2.686 [id number] [facility] 2024-09-14 16:00:00 2024-09-14 16:15:00 Physical Anthropologist Visit Pob, Adc Lab Main [facility] Pob, Adc Lab Main [facility] 1.2840.114 350.1.13.10 4.2.7.2.686 [id number] [facility] 2024-09-14 16:00:00 2024-09-14 16:00:00 [facility] [id number] [facility] 2024-09-12 00:00:00 2024-09-12 14:58:47 Telephone [facility] 1.2840.114 350.1.13.10 4.2.7.2.686 [id number] [facility] 2024-09-12 08:00:00 2024-09-12 08:15:00 Office Visit Louann [facility] 1.2.840.114 350.1.13.10 4.2.7.2.686 [id number] [facility] 2024-09-12 08:00:00 2024-09-12 08:00:00 Outpatient R LOUANN [facility] [id number] [facility] 2024-08-28 09:25:19 2024-08-28 10:30:52 [id number] E[facility] 2024-08-28 09:00:00 2024-08-28 10:30:52 Consult Eulogio Ya [facility] 1.2.840.114 350.1.13.70 8.2.7.2.686 [id number] [facility] [place] [place] 2024-08-21 00:00:00 2024-08-22 14:10:34 Refill Louann [facility] 1.2.840.114 350.1.13.10 4.2.7.2.686 [id number] [facility] 2024-04-25 09:15:00 2024-04-25 10:59:07 Outpatient R JORGE ROSALES [facility] [id number] [facility] 2024-04-25 09:15:00 2024-04-25 10:59:07 Office Visit Jorge Rosales [facility] 1.2.840.114 350.1.13.10 4.2.7.2.686 [id number] [facility] 2024-03-08 00:00:00 2024-04-08 18:20:52 Patient Secure Msg Doctor Unassigned, [place] [facility] 1.2840.114 350.1.13.10 4.2.7.2.686 [id number] [facility] 2024-03-07 16:01:24 2024-03-07 23:59:00 Outpatient R BHAKTI COBIAN [facility] [id number] [facility] 2024-03-07 16:01:24 2024-03-07 23:59:00 Hospital Encounter Bhakti Cobian [facility] 1.2840.114 350.1.13.10 4.2.7.2.686 [id number] [facility] 2024-03-07 16:01:23 2024-03-07 23:59:00 Hospital Encounter Bhakti Cobian [facility] OFF[facility] BU[facility]ING 1.2840.114 350.1.13.10 4.2.7.2.686 [id number] [facility] 2024-03-07 16:20:00 2024-03-07 16:20:00 Urgent Care Bhakti Cobian Unknown, Attending [facility] 1.2840.114 350.1.13.10 4.2.7.2.686 [id number] [facility] 2024-03-06 00:00:00 2024-03-06 00:00:00 Outpatient R JORGE ROSALES [facility] [id number] [facility] 2024-03-02 13:58:16 2024-03-02 23:59:00 Hospital Encounter Otis Harris [facility] 1.2840.114 350.1.13.10 4.2.7.2.686 [id number] [facility] 2024-03-02 00:00:00 2024-03-02 15:41:40 Telephone Louann [facility] BUILDING 1.2.840.114 350.1.13.10 4.2.7.2.686 [id number] [facility] 2024-03-02 14:00:00 2024-03-02 15:05:54 Outpatient R LOUANN [facility] [id number] [facility] 2024-03-02 14:00:00 2024-03-02 14:15:00 Physical Anthropologist Visit 2, Adc Lab Louann [facility] BUILDING 1.2.840.114 350.1.13.10 4.2.7.2.686 [id number] [facility] 2024-03-01 11:30:00 2024-03-01 12:06:54 [facility] [id number] [facility] 2024-03-01 00:00:00 2024-03-01 09:22:52 Telephone Louann [facility] BUILDING 1.2.840.114 350.1.13.10 4.2.7.2.686 [id number] [facility] 2024-02-29 10:00:00 2024-02-29 10:32:36 Outpatient R FLIPLETTY GARCIAZULMAPATY [facility] [id number] [facility] 2024-02-29 10:00:00 2024-02-29 10:32:36 Urgent Care FlipSalma garcia Unknown, Attending [facility] 1.2.840.114 350.1.13.10 4.2.7.2.686 [id number] [facility] 2024-02-29 00:00:00 2024-02-29 08:26:12 Refill Tammyi, Otis [facility] N[facility] BUILDING 1..840.114 350.1.13.10 4.2.7.2.686 [id number] [facility] 2024-02-29 00:00:00 2024-02-29 00:00:00 Office Visit- Est Pt.- Level 3 CLS CLS [id number] [facility] 2024-02-24 16:20:00 2024-02-24 16:40:00 Urgent Care Adamaris Agarwalozzyrosalinda Unknown, Attending [facility] OFF[facility] BUILDING 1..840.114 350.1.13.10 4.2.7.2.686 [id number] [facility] 2024-02-24 16:20:00 2024-02-24 16:20:00 Outpatient R DARBY AGARWAL [facility] [id number] [facility] 2024-01-07 11:40:00 2024-01-07 12:37:22 Outpatient R KAYKIRK TRESA [facility] [id number] [facility] 2024-01-07 11:40:00 2024-01-07 12:37:22 Urgent Care Tresa Tate Unknown, Attending [facility] 1..840.114 350.1.13.10 4.2.7.2.686 [id number] [facility] 2023-12-27 10:10:37 2023-12-27 23:59:00 Outpatient R DARYB AGARWAL [facility] [id number] [facility] 2023-11-24 16:30:00 2023-11-24 16:41:00 [facility] [id number] [facility] 2023-11-24 16:30:00 2023-11-24 16:41:00 Office Visit Ansley Dominguez [facility] BUILDING 1.840.114 350.1.13.10 4.2.7.2.686 [id number] [facility] 2023-10-26 09:15:00 2023-10-26 09:45:03 Outpatient R JORGE ROSALES [facility] [id number] [facility] 2023-10-26 09:15:00 2023-10-26 09:45:03 Office Visit Jorge Rosales Yogi [facility] 1.2.840.114 350.1.13.10 4.2.7.2.686 [id number] [facility] 2023-10-02 00:00:00 2023-10-02 00:00:00 [facility] 1.2.840.114 350.1.13.10 4.2.7.2.686 [id number] [facility] 2023-09-29 00:00:00 2023-09-29 00:00:00 Telephone Jasmine Domingueztney [facility] 1.2.840.114 350.1.13.10 4.2.7.2.686 [id number] [facility] 2023-08-18 16:30:00 2023-08-18 16:46:19 Outpatient R JASMINE DOMINGUEZTNEY [facility] [id number] [facility] 2023-08-18 16:30:00 2023-08-18 16:46:19 [facility] 1.2.840.114 350.1.13.10 4.2.7.2.686 [id number] [facility] 2023-08-07 00:00:00 2023-08-07 00:00:00 Patient Secure Msg Doctor Unassigned, [place] [facility] 1.2840.114 350.1.13.10 4.2.7.2.686 [id number] [facility] 2023-08-06 00:00:00 2023-08-06 00:00:00 Letter (Out) Alberto [facility] 1.2.840.114 350.1.13.10 4.2.7.2.686 [id number] [facility] 2023-07-30 00:00:00 2023-07-30 00:00:00 Case Management Alberto [facility] 1.284.114 350.1.13.10 4.2.7.2.686 [id number] [facility] 2023-07-26 12:48:08 2023-07-26 23:59:00 Outpatient R ALBERTO [facility] [id number] [facility] 2023-07-26 12:48:08 2023-07-26 23:59:00 Hospital Encounter Ansley Dominguez [facility] 1.284.114 350.1.13.10 4.2.7.2.686 [id number] [facility] 2023-07-20 08:30:00 2023-07-20 09:23:43 Outpatient R OTIS HARRIS [facility] [id number] [facility] 2023-07-20 08:30:00 2023-07-20 09:23:43 Office Visit Otis Harris [facility] 1.2.114 350.1.13.10 4.2.7.2.686 [id number] [facility] 2023-07-20 00:00:00 2023-07-20 00:00:00 Orders Only Doctor Unassigned, [place] [facility] 1.2840.114 350.1.13.10 4.2.7.2.686 [id number] [facility] 2023-07-12 08:00:00 2023-07-12 08:15:00 Physical Anthropologist Visit 2, [facility] 1.2.840.114 350.1.13.10 4.2.7.2.686 [id number] [facility] 2023-07-12 08:00:00 2023-07-12 08:00:00 [facility] [id number] 2023-07-12 07:30:00 2023-07-12 07:30:00 Outpatient R [facility] [id number] [facility] 2023-05-05 00:00:00 2023-05-05 00:00:00 [facility] 1.2840.114 350.1.13.10 4.2.7.2.686 [id number] [facility] 2023-05-03 08:40:19 2023-05-03 23:59:00 Outpatient R ALBERTO [facility] [id number] [facility] 2023-05-03 08:40:19 2023-05-03 23:59:00 [facility] 1.2840.114 350.1.13.10 4.2.7.2.686 [id number] [facility] 2023-04-27 00:00:00 2023-04-27 00:00:00 Orders Only Doctor Unassigned, [place] [facility] 1.2840.114 350.1.13.10 4.2.7.2.686 [id number] [facility] 2023-04-21 00:00:00 2023-04-21 00:00:00 Case Management [facility] 1.2.840.114 350.1.13.10 4.2.7.2.686 [id number] [facility] 2023-04-21 00:00:00 2023-04-21 00:00:00 Telephone Ansley Dominguez [facility] 1.2.840.114 350.1.13.10 4.2.7.2.686 [id number] [facility] 2023-04-19 10:00:00 2023-04-19 10:26:56 Office Visit Jasmine Domingueztney [facility] 1.2.840.114 350.1.13.10 4.2.7.2.686 [id number] [facility] 2023-04-19 10:00:00 2023-04-19 10:26:56 Outpatient R JASMINE DOMINGUEZTNEY [facility] [id number] [facility] 2023-03-17 00:00:00 2023-03-17 00:00:00 Telephone Jasmine Domingueztney [facility] 1.2.840.114 350.1.13.10 4.2.7.2.686 [id number] [facility] 2023-02-17 16:30:00 2023-02-17 16:30:00 Office Visit Ansley Dominguez [facility] 1.2.840.114 350.1.13.10 4.2.7.2.686 [id number] [facility] 2023-02-17 16:30:00 2023-02-17 16:12:49 Out[facility] [id number] [facility] 2023-01-25 08:45:00 2023-01-25 09:00:00 Physical Anthropologist Visit Lab, Sesar Harden Alberto [facility] 1..840.114 350.1.13.10 4.2.7.2.686 [id number] [facility] 2023-01-25 08:45:00 2023-01-25 08:45:00 [facility] [id number] [facility] 2023-01-25 00:00:00 2023-01-25 00:00:00 Patient Secure Msg Doctor Unassigned, [place] [facility] 1.840.114 350.1.13.10 4.2.7.2.686 [id number] [facility] 2023-01-18 08:00:00 2023-01-18 09:13:55 Outpatient Jorden DOMINGUEZ [facility] [id number] [facility] 2023-01-18 08:00:00 2023-01-18 09:13:55 [facility] 1..840.114 350.1.13.10 4.2.7.2.686 [id number] [facility] 2023-01-05 00:00:00 2023-01-05 00:00:00 Orders Only Doctor Unassigned, [place] [facility] 1.840.114 350.1.13.10 4.2.7.2.686 [id number] [facility] 2022-04-28 09:56:00 2022-04-28 09:56:00 Outpatient ANDRES_DOMINICK KOENIG [facility] [id number] 0726 Mary Beth vieyra [facility] Results Test Description Test Time Test Comments Results Result Co mments Source [facility], [id number] 14:14:00 * Test Item Value Reference Range Interpretation Comme nts POCT U SP GRAV (test code = 3255) 1.010 mg/dl 1.005-1.025 POCT PH U (test code = 3254) 5.5 mg/dl 5-8 POCT U LEUK EST (test code = 3263) negative Negative - Negative POCT U NIT (test code = 3262) negative Negative - Negati ve POCT U PROT (test code = 3259) negative Negative - Negative POCT U GLU (test code = 3256) negative Negative - Negati ve POCT U KETONE (test code = 3258) negative Negative - Negative POCT U UROBILI (test code = 3260) 0.2 mg/dl 0.2-1 POCT U BILI (test code = 3261) negative Negative - Negative POCT U BLD (test code = 3257) negative Negative - Negati ve POCT U COLOR (test code = 3266) yellow POCT U APPEAR (test code = 3267) clear f [facility] CenterMEAS,POST-VOID RES,US,[id number] 00:00:00* Test Item Value Reference Range Interpretation Comme nts PVR (URINE VOLUME) (test code = 5193) 9 ml 0-100 [facility] CenterXR WRIST 3+ VW [id number] 21:30:51EXAMS: XR WRIST 3+ VW RIGHT, XR HAND 3+ VW RIGHT HISTORY: right hand/wrist pain, no injury COMPARISON: None. FINDINGS: Radiographs of the right wrist and hand demonstrate no acute fracture ordislocation. Chronic deformity fracture of the base of the firstmetacarpal. Severe narrowing of the thumb carpometacarpal joint is seenwith osteophytosis, subchondral sclerosis, cystic change and fragmentation.There is diffuse mild MCP and interphalangeal joint space narrowing. Softtissue swelling is present about the wrist and hand.[facility] CenterXR HAND 3+ VW [id number] 21:30:51EXAMS: XR WRIST 3+ VW RIGHT, XR HAND 3+ VW RIGHT HISTORY: right hand/wrist pain, no injury COMPARISO N: None. FINDINGS: Radiographs of the right wrist and hand demonstrate no acute fracture ordislocation. Chronic deformity fracture of the base of the firstmetacarpal. Severe narrowing of the thumb carpometacarpal joint is seenwith osteophytosis, subchondral sclerosis, cystic change and fragmentation.There is diffuse mild MCP and interphalangeal joint space narrowing. Softtissue swelling is present about the wrist and hand.[facility] CenterCT ABDOMEN PELVIS W WO [id number] 20:43:59CT Abdomen and Pelvis without and with intravenous contrast. CLINICAL HISTORY: Flank pain. DOSE: Up-to-date CT equipment and radiation dose reduction techniques wereemployed. CTDIvol: ? 18.33+13.7+36.6 mGy. DLP: 1044.48+150+2084 ?mGy-cm. TECHNIQUE : Contiguous axial imaging from the level of the lung basesthrough the pubic symphysis were performed initially without contrast andsubsequently after the uncomplicated administration of nonionic contrastmaterial. ?Coronal and sagittal reconstructionswere obtained. Auto mAand/or iterative reconstruction were used to reduce radiation dose. FINDINGS:?Comparison has been made with previous CT studies of 07/26/2023. Lower lungs: Small hiatal hernia.No pleural effusion or pericardialeffusion. Liver, Gallbladder and Spleen: Liver is 17 cm and showed 13 mm hypodenselesion in the left lobe likely an incidental small cyst. Subcentimetercystic lesions seen in the central right lobe and lower right lobe of theliver. No enhancing liver lesions visualized. Spleen is of normal size.Gallbladder showed questionable small increased densities, suspicious formultiple small gallstones.. Biliary ducts and the pancreatic duct appear ofnormal size. Peritoneum: ?No free air or free fluid. No lymphadenopathy. Pancreas and Adrenals: ?Unremarkable pancreas and left adrenal gland. Rightadrenal gland showed 14 mm nodule, unchanged when compared with previousst udy. Kidneys and Ureters: 11 mm nonobstructing stone noted in the lower pole ofthe right kidney (attenuation value of more than 1300 HU). Adjacent to thislarger stone, there is a small 1 to 2 mm stone in the lower right kidney.No hydroureter or hydronephrosis. 22 mm lesion in the lateral interpolarright kidney, consistent withBosniak type I cyst, minimally increased in size since 07/26/2023 study.Attenuation value of this lesion is less than 10 HU and precontrast,increasing to 20 1HU in the arterial phase and decreasing to 15 HU anddelayed venous phase images.. Vessels: Moderate atherosclerosis and aorta and iliac arteries. Noabdominal aortic aneurysm. Retroaortic location of left renal vein noted. Retroperitoneum: No abnormal fluid or lymphadenopathy. Bowel: ?Constipation noted with moderate fecal retention throughout theright side, up to distal descending colon. Mild generalized diverticulosisseen in the colon without any acute changes of diverticulitis. No sign ofacute appendicitis. Small bowel gas pattern is unremarkable. Bladder and Reproductive Organs: ?Enlarged prostate gland with densecentral zone calcifications. Thickened bladder wall is likely secondary toenlarged prostate gland. Bones: ?Exaggerated lumbar lordosis, multilevel degenerative disc disease,grade 1 spondylolisthesis at L4-L5, lower lumbar hypertrophic facetarthritis noted. Degenerative changes are seen in the sacroiliac jointswith left sided pseudoarticulation between the last lumbar segment andupper sacrum, vacuum phenomenon in body of the right iliac bone. Soft tissues: Small direct type left inguinal hernia suspected. 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 Small fat-containingumbilical hernia without complications. CONCLUSION:1. 11 mm nonobstructing stone in the lower pole of the right kidney. Asecond punctate 1-2 mm stone also seen in the lower pole of the rightkidney. No left kidney stone. No obstructive hydronephrosis or hydroureteron either side.2. Enlarged prostate and thickened lau of the urinary bladder.3. Probable small gallstones which should be further confirmed byultrasound, if clinically indicated.4. Subcentimeter hypodense lesions in the right lobe of the liver, andlargest 13 mm hypodense lesion in the left lobe consistent with hepaticcysts.5. Stable 14 mm right adrenal gland nodule. Minimal increase in cystic massin the lateral right kidney from 20 mmto 22 mm since 07/26/2023 study.Findings are still suggestive of Bosniak type I renal cyst.6. Constipation, diverticulosis of the large bowel without any acutechanges. [facility] Urinalysis W Specific [id number] 15:18:00* Test Item Value Reference Range Interpretation Comme nts POCT U SP GRAV (test code = 3255) 1.020 mg/dl 1.005-1.025 POCT PH U (test code = 3254) 5 mg/dl 5-8 POCT U LEUK EST (test code = 3263) Negative Negative - Negative POCT U NIT (test code = 3262) Negative Negative - Negati ve POCT U PROT (test code = 3259) Negative Negative - Negative POCT U GLU (test code = 3256) Negative Negative - Negati ve POCT U KETONE (test code = 3258) Negative Negative - Negative POCT U UROBILI (test code = 3260) Negative 0.2-1 POCT U BILI (test code = 3261) Negative Negative - Negative POCT U BLD (test code = 3257) Trace Negative - Negati ve POCT U COLOR (test code = 3266) Yellow POCT U APPEAR (test code = 3267) Clear Lab Interpretation (test cod e = 25352-5) Normal [facility] Urinalysis, [id number] 22:23:00 * Test Item Value Reference Range Interpretation Comme nts POCT U SP GRAV (test code = 3255) 1.025 mg/dl 1.005-1.025 POCT PH U (test code = 3254) 6.0 mg/dl 5-8 POCT U LEUK EST (test code = 3263) negative Negative - Negative POCT U NIT (test code = 3262) negative Negative - Negative POCT U PROT (test code = 3259) negative Negative - Negative POCT U GLU (test code = 3256) negative Negative - Negative POCT U KETONE (test code = 3258) negative Negative - Negative POCT U UROBILI (test code = 3260) 0.2 mg/dl 0.2-1 POCT U BILI (test code = 3261) negative Negative - Negative POCT U BLD (test code = 3257) trace-intact Negative - Negative POCT U COLOR (test code = 3266) yellow POCT U APPEAR (test code = 3267) clear [facility] Urinalysis, [id number] 22:23:00 * Test Item Value Reference Range Interpretation Comme nts POCT U SP GRAV (test code = 3255) 1.025 mg/dl 1.005-1.025 POCT PH U (test code = 3254) 6.0 mg/dl 5-8 POCT U LEUK EST (test code = 3263) negative Negative - Negative POCT U NIT (test code = 3262) negative Negative - Negative POCT U PROT (test code = 3259) negative Negative - Negative POCT U GLU (test code = 3256) negative Negative - Negative POCT U KETONE (test code = 3258) negative Negative - Negative POCT U UROBILI (test code = 3260) 0.2 mg/dl 0.2-1 POCT U BILI (test code = 3261) negative Negative - Negative POCT U BLD (test code = 3257) trace-intact Negative - Negative POCT U COLOR (test code = 3266) yellow POCT U APPEAR (test code = 3267) clear [facility],POST-VOID RES,US,[id number] 22:21:00* Test Item Value Reference Range Interpretation Comme nts PVR (URINE VOLUME) (test code = 5193) 13 ml 0-100 [facility],POST-VOID RES,US,[id number] 22:21:00* Test Item Value Reference Range Interpretation Comme nts PVR (URINE VOLUME) (test code = 5193) 13 ml 0-100 [facility], [id number] 22:09:00 * Test Item Value Reference Range Interpretation Comme nts POCT U SP GRAV (test code = 3255) 1.020 mg/dl 1.005-1.025 POCT PH U (test code = 3254) 6.0 mg/dl 5-8 POCT U LEUK EST (test code = 3263) Negative Negative - Negative POCT U NIT (test code = 3262) Negative Negative - Negative POCT U PROT (test code = 3259) Negative Negative - Negative POCT U GLU (test code = 3256) Negative Negative - Negative POCT U KETONE (test code = 3258) Negative Negative - Negative POCT U UROBILI (test code = 3260) Negative 0.2-1 POCT U BILI (test code = 3261) Negative Negative - Negative POCT U BLD (test code = 3257) trace-Intact Negative - Negative POCT U COLOR (test code = 3266) Yellow POCT U APPEAR (test code = 3267) Clear [facility] URINALYSIS, [id number] 22:09:00 * Test Item Value Reference Range Interpretation Comme nts POCT U SP GRAV (test code = 3255) 1.020 mg/dl 1.005-1.025 POCT PH U (test code = 3254) 6.0 mg/dl 5-8 POCT U LEUK EST (test code = 3263) Negative Negative - Negative POCT U NIT (test code = 3262) Negative Negative - Negative POCT U PROT (test code = 3259) Negative Negative - Negative POCT U GLU (test code = 3256) Negative Negative - Negative POCT U KETONE (test code = 3258) Negative Negative - Negative POCT U UROBILI (test code = 3260) Negative 0.2-1 POCT U BILI (test code = 3261) Negative Negative - Negative POCT U BLD (test code = 3257) trace-Intact Negative - Negative POCT U COLOR (test code = 3266) Yellow POCT U APPEAR (test code = 3267) Clear [facility] URINALYSIS, [id number] 22:09:00 * Test Item Value Reference Range Interpretation Comme nts POCT U SP GRAV (test code = 3255) 1.020 mg/dl 1.005-1.025 POCT PH U (test code = 3254) 6.0 mg/dl 5-8 POCT U LEUK EST (test code = 3263) Negative Negative - Negative POCT U NIT (test code = 3262) Negative Negative - Negative POCT U PROT (test code = 3259) Negative Negative - Negative POCT U GLU (test code = 3256) Negative Negative - Negative POCT U KETONE (test code = 3258) Negative Negative - Negative POCT U UROBILI (test code = 3260) Negative 0.2-1 POCT U BILI (test code = 3261) Negative Negative - Negative POCT U BLD (test code = 3257) trace-Intact Negative - Negative POCT U COLOR (test code = 3266) Yellow POCT U APPEAR (test code = 3267) Clear [facility] URINALYSIS, [id number] 13:24:00 * Test Item Value Reference Range Interpretation Comme nts POCT U SP GRAV (test code = 3255) 1.020 mg/dl 1.005-1.025 POCT PH U (test code = 3254) 6.0 mg/dl 5-8 POCT U LEUK EST (test code = 3263) trace Negative - Negative POCT U NIT (test code = 3262) negative Negative - Negati ve POCT U PROT (test code = 3259) negative Negative - Negative POCT U GLU (test code = 3256) negative Negative - Negati ve POCT U KETONE (test code = 3258) trace Negative - Negative POCT U UROBILI (test code = 3260) 0.2 mg/dl 0.2-1 POCT U BILI (test code = 3261) negative Negative - Negative POCT U BLD (test code = 3257) negative Negative - Negati ve POCT U COLOR (test code = 3266) yellow POCT U APPEAR (test code = 3267) clear [facility] URINALYSIS, [id number] 13:24:00 * Test Item Value Reference Range Interpretation Comme nts POCT U SP GRAV (test code = 3255) 1.020 mg/dl 1.005-1.025 POCT PH U (test code = 3254) 6.0 mg/dl 5-8 POCT U LEUK EST (test code = 3263) trace Negative - Negative POCT U NIT (test code = 3262) negative Negative - Negati ve POCT U PROT (test code = 3259) negative Negative - Negative POCT U GLU (test code = 3256) negative Negative - Negati ve POCT U KETONE (test code = 3258) trace Negative - Negative POCT U UROBILI (test code = 3260) 0.2 mg/dl 0.2-1 POCT U BILI (test code = 3261) negative Negative - Negative POCT U BLD (test code = 3257) negative Negative - Negati ve POCT U COLOR (test code = 3266) yellow POCT U APPEAR (test code = 3267) clear [facility] [id number] 16:51:42* Test Item Value Reference Range Interpretation Comme nts POCT Creatinine (test code = 8354244170) 0.9 mg/dL 0.6-1.3 Lab Interpretation (test cod e = 99082-9) Normal [facility] URINALYSIS, [id number] 15:00:00 * Test Item Value Reference Range Interpretation Comme nts POCT U SP GRAV (test code = 3255) 1.025 mg/dl 1.005-1.025 POCT PH U (test code = 3254) 6.0 mg/dl 5-8 POCT U LEUK EST (test code = 3263) negative Negative - Negative POCT U NIT (test code = 3262) negative Negative - Negative POCT U PROT (test code = 3259) negative Negative - Negative POCT U GLU (test code = 3256) negative Negative - Negative POCT U KETONE (test code = 3258) negative Negative - Negative POCT U UROBILI (test code = 3260) 0.2 mg/dl 0.2-1 POCT U BILI (test code = 3261) negative Negative - Negative POCT U BLD (test code = 3257) trace-intact Negative - Negative POCT U COLOR (test code = 3266) yellow POCT U APPEAR (test code = 3267) clear [facility] URINALYSIS, [id number] 15:00:00 * Test Item Value Reference Range Interpretation Comme nts POCT U SP GRAV (test code = 3255) 1.025 mg/dl 1.005-1.025 POCT PH U (test code = 3254) 6.0 mg/dl 5-8 POCT U LEUK EST (test code = 3263) negative Negative - Negative POCT U NIT (test code = 3262) negative Negative - Negative POCT U PROT (test code = 3259) negative Negative - Negative POCT U GLU (test code = 3256) negative Negative - Negative POCT U KETONE (test code = 3258) negative Negative - Negative POCT U UROBILI (test code = 3260) 0.2 mg/dl 0.2-1 POCT U BILI (test code = 3261) negative Negative - Negative POCT U BLD (test code = 3257) trace-intact Negative - Negative POCT U COLOR (test code = 3266) yellow POCT U APPEAR (test code = 3267) clear [facility] URINALYSIS, [id number] 15:00:00 * Test Item Value Reference Range Interpretation Comme nts POCT U SP GRAV (test code = 3255) 1.025 mg/dl 1.005-1.025 POCT PH U (test code = 3254) 6.0 mg/dl 5-8 POCT U LEUK EST (test code = 3263) negative Negative - Negative POCT U NIT (test code = 3262) negative Negative - Negative POCT U PROT (test code = 3259) negative Negative - Negative POCT U GLU (test code = 3256) negative Negative - Negative POCT U KETONE (test code = 3258) negative Negative - Negative POCT U UROBILI (test code = 3260) 0.2 mg/dl 0.2-1 POCT U BILI (test code = 3261) negative Negative - Negative POCT U BLD (test code = 3257) trace-intact Negative - Negative POCT U COLOR (test code = 3266) yellow POCT U APPEAR (test code = 3267) clear [facility] URINALYSIS, [id number] 15:00:00 * Test Item Value Reference Range Interpretation Comme nts POCT U SP GRAV (test code = 3255) 1.025 mg/dl 1.005-1.025 POCT PH U (test code = 3254) 6.0 mg/dl 5-8 POCT U LEUK EST (test code = 3263) negative Negative - Negative POCT U NIT (test code = 3262) negative Negative - Negative POCT U PROT (test code = 3259) negative Negative - Negative POCT U GLU (test code = 3256) negative Negative - Negative POCT U KETONE (test code = 3258) negative Negative - Negative POCT U UROBILI (test code = 3260) 0.2 mg/dl 0.2-1 POCT U BILI (test code = 3261) negative Negative - Negative POCT U BLD (test code = 3257) trace-intact Negative - Negative POCT U COLOR (test code = 3266) yellow POCT U APPEAR (test code = 3267) clear [facility] URINALYSIS, [id number] 12:38:00 * Test Item Value Reference Range Interpretation Comme nts POCT U SP GRAV (test code = 3255) 1.025 mg/dl 1.005-1.025 POCT PH U (test code = 3254) 6.0 mg/dl 5-8 POCT U LEUK EST (test code = 3263) trace Negative - Negative POCT U NIT (test code = 3262) negative Negative - Negati ve POCT U PROT (test code = 3259) negative Negative - Negative POCT U GLU (test code = 3256) negative Negative - Negati ve POCT U KETONE (test code = 3258) negative Negative - Negative POCT U UROBILI (test code = 3260) 0.2 mg/dl 0.2-1 POCT U BILI (test code = 3261) negative Negative - Negative POCT U BLD (test code = 3257) negative Negative - Negati ve POCT U COLOR (test code = 3266) yellow POCT U APPEAR (test code = 3267) clear [facility] URINALYSIS, [id number] 12:38:00 * Test Item Value Reference Range Interpretation Comme nts POCT U SP GRAV (test code = 3255) 1.025 mg/dl 1.005-1.025 POCT PH U (test code = 3254) 6.0 mg/dl 5-8 POCT U LEUK EST (test code = 3263) trace Negative - Negative POCT U NIT (test code = 3262) negative Negative - Negati ve POCT U PROT (test code = 3259) negative Negative - Negative POCT U GLU (test code = 3256) negative Negative - Negati ve POCT U KETONE (test code = 3258) negative Negative - Negative POCT U UROBILI (test code = 3260) 0.2 mg/dl 0.2-1 POCT U BILI (test code = 3261) negative Negative - Negative POCT U BLD (test code = 3257) negative Negative - Negati ve POCT U COLOR (test code = 3266) yellow POCT U APPEAR (test code = 3267) clear [facility] URINALYSIS, [id number] 12:38:00 * Test Item Value Reference Range Interpretation Comme nts POCT U SP GRAV (test code = 3255) 1.025 mg/dl 1.005-1.025 POCT PH U (test code = 3254) 6.0 mg/dl 5-8 POCT U LEUK EST (test code = 3263) trace Negative - Negative POCT U NIT (test code = 3262) negative Negative - Negati ve POCT U PROT (test code = 3259) negative Negative - Negative POCT U GLU (test code = 3256) negative Negative - Negati ve POCT U KETONE (test code = 3258) negative Negative - Negative POCT U UROBILI (test code = 3260) 0.2 mg/dl 0.2-1 POCT U BILI (test code = 3261) negative Negative - Negative POCT U BLD (test code = 3257) negative Negative - Negati ve POCT U COLOR (test code = 3266) yellow POCT U APPEAR (test code = 3267) clear [facility] History and Physical Notes Date/Time Note Provider Source 2024-09-20 07:39:50 Urology Pre-Operative History and Physical Update Note Date of Service: 09/20/2024 There have been no significant interval changes in the history or physical examination. See full history and physical for more details. Risks, benefits and alternatives to the procedure were reviewed with the patient again today, and he voiced understanding of the condition present as well as the planned procedure and wishes to proceed. Informed consent was obtained and all questions answered. Diagnosis: worsening BPH and LUTS on medical therapy Patient confirmed consent : [facility] I counseled patient about options for treating BPH and natural history if not treated ( bladder atony, voiding dysfunction, renal failure, stones recurrent infection, and need for senior living catheter) CIC, surgical options: TURP, ThuLVP to alleviate the obstruction and attempt improve LUTS and avoid risk of complications from lobsterman QUEVEDO. Possible adverse events recognized with TURP and ThuLVP include and not limited to ( pain, bleeding, infection, injury to surrounding structures, erectile dysfunction, urinary incontinence, retrograde ejaculation, stricture formation, inability to void/retention, prostatic regrowth, need for additional procedures). Prostatic Urethral Lift ( UroLift) Robotic Laparoscopic Assisted Simple Prostatectomy for large glands ThuLVP has comparable outcomes when compared with the gold standard TURP, in addition to less risk of bleeding, catheterization time and need for hospitalization. HoLEP : most likely clear the stone in one session, risk of complications mainly damage to bladder ( perforation, , need to reconstruct). pain, bleeding, infection, injury to surrounding structures, need for prolonged catheter , failure to remove all prostate, need for additional procedures Patient may experience urgency, transient СВЕТЛАНА/ UUI or LUZ MARINA, if persistent may need further medical or surgical therapy ( rare) All questions answered and patient voiced understanding Planned procedure: HoLEP Otis Harris MD [facility] Source Note - Otis Harris MD - 09/12/2024 8:00 AM AIR [facility] .laUROLOGY HISTORY AND PHYSICAL NOTE Date of Service: 09/12/2024 Chief Complaint: LUTS History of Present Illness: Lisa Schwartz is a 68 year old male with a pmh BPH with lower urinary tract symptoms currently managed on flomax with worsening nocturia affecting QoL No hx of anticoagulation International Prostate Symptom Score (I-PSS) In the past month: (Not at all - 0, Less than 1 in 5 times - 1, Less than half the time - 2, About half the time - 3, More than half the time - 4, Almost always - 5) 1. Incomplete Emptyin 2. Frequency: 3 3. Intermittency: 0 4. Urgency: 0 5. Weak Stream: 0 6. Strainin 7. Nocturia: 3 TOTAL: 6 Bother score: 5 [facility]x [facility] Has finding of microscopic hematuria w cysto showing bilobar enlarged prostate, CTU from 07/26/23 showing increase in right lateral interpolar renal cyst to 20mm from 18mm, no solid components appreciated on review. Pt also has a 1.2mm and 2mm nonobstructing lower pole stone in the right kidney. Currently not having any flank pain, dysuria, N/V, fevers chills or hermaturia. Interval CT showing slightly bigger cyst, however still simple appearing. Denies other changes. PSA (ng/mL) Date Value 01/25/2023 1.89 03/01/2024: Lisa Schwartz is a 69 year old male with PMH as below and urolithiasis , who presents with LUQ and left flank pain. No fever, N&V , hematuria or UTI Did not pass stones Home Medications: (Not in a hospital admission) Histories: Past Medical History: Diagnosis Date Hypertension Irregular heartbeat Unspecified sensorineural hearing loss History reviewed. No pertinent surgical history. Family History Problem Relation Age of Onset Hypertension Father Diabetes Father Social History Socioeconomic History Marital status: Spouse name: Not on file Number of children: Not on file Years of education: Not on file Highest education level: Not on file Occupational History Not on file Tobacco Use Smoking status: Former Current packs/day: 0.00 Types: Cigarettes Quit date: 1992 Years since quittin.9 Smokeless tobacco: Never Substance and Sexual Activity Alcohol use: Yes Alcohol/week: 15.0 standard drinks of alcohol Types: 15 Cans of beer per week Drug use: Not Currently Sexual activity: Not on file Other Topics Concern Not on file Social History Narrative Not on file Social Determinants of Health Financial Resource Strain: Not on file Food Insecurity: Not on file Transportation Needs: Not on file Physical Activity: Not on file Stress: Not on file Social Connections: Not on file Housing Stability: Not on file Allergies: No Known Allergies Review of Systems: Constitutional: negative Eyes: negative Ears, nose, mouth, throat: negative Cardiovascular: negative Respiratory: negative Gastrointestinal: negative Genitourinary: (+) per HPI Musculoskeletal: negative Integumentary: negative Neurological: negative Psychiatric: negative Endocrine: negative Hematologic/Lymphatic: negative Allergic/Immunologic: negative, allergies listed above Physical Examination: Blood pressure 134/77, pulse 61, temperature 36.8 ?C (98.2 ?F), resp. rate 20, height 5' 10" (1.778 m), weight 251 lb (113.9 kg), SpO2 96%. Constitutional:no acute distress Eyes: normal external eye, conjunctiva and sclera normal Ears, nose, mouth, throat: normocephalic, moist mucous membranes Cardiovascular: regular rate and rhythm Respiratory: respirations unlabored on room air Gastrointestinal: soft, non-distended, non-tender, no costovertebral angle tenderness Genitourinary: circumcised, normal phallus, bilateral descended testes and not tender Rectal: deferred Musculoskeletal: no clubbing, cyanosis or edema Skin: no rashes Neurologic: no focal deficits Psychiatric: appropriate mood and affect Hematologic: no bruising Laboratory: Hemogram There are no current results on file for these tests and/or test for the past 3 mos. Chemistry There are no current results on file for these tests and/or test for the past 3 mos. Urinalysis There are no current results on file for these tests and/or test for the past 3 mos. Urine Culture There are no current results on file for these tests and/or test for the past 3 mos. Liver Function Tests There are no current results on file for these tests and/or test for the past 3 mos. Coagulation Profile There are no current results on file for these tests and/or test for the past 3 mos. Arterial Blood Gas There are no current results on file for these tests and/or test for the past 3 mos. Radiology: CT : 1. 11 mm nonobstructing stone in the lower pole of the right kidney. A second punctate 1-2 mm stone also seen in the lower pole of the right kidney. No left kidney stone. No obstructive hydronephrosis or hydroureter on either side. 2. Enlarged prostate and thickened lau of the urinary bladder. 3. Probable small gallstones which should be further confirmed by ultrasound, if clinically indicated. 4. Subcentimeter hypodense lesions in the right lobe of the liver, and largest 13 mm hypodense lesion in the left lobe consistent with hepatic cysts. 5. Stable 14 mm right adrenal gland nodule. Minimal increase in cystic mass in the lateral right kidney from 20 mm to 22 mm since 07/26/2023 study. Findings are still suggestive of Bosniak type I renal cyst. 6. Constipation, diverticulosis of the large bowel without any acute changes. Procedure: PVR : 49 Assessment and Plan: 69 year old male with left flank and LUQ wit no obvious urological cause Stable renal cyst, seems to be simple Hx of urolithiasis stable 2. Worsening LUTS on medical therapy , CT prostate volume around 60 cc PSA (ng/mL) Date Value 01/25/2023 1.89 Cysto Aug 2023: The prostate appeared enlarged bilobar . Clear efflux drained from both ureteral orifices. The bladder had normal capacity. The patient tolerated the procedure well I counseled patient about options for treating BPH and natural history if not treated ( bladder atony, voiding dysfunction, renal failure, stones recurrent infection, and need for lobsterman catheter) CIC, surgical options: TURP, ThuLVP to alleviate the obstruction and attempt improve LUTS and avoid risk of complications from senior living QUEVEDO. Possible adverse events recognized with TURP and ThuLVP include and not limited to ( pain, bleeding, infection, injury to surrounding structures, erectile dysfunction, urinary incontinence, retrograde ejaculation, stricture formation, inability to void/retention, prostatic regrowth, need for additional procedures). Prostatic Urethral Lift ( UroLift) Robotic Laparoscopic Assisted Simple Prostatectomy for large glands ThuLVP has comparable outcomes when compared with the gold standard TURP, in addition to less risk of bleeding, catheterization time and need for hospitalization. HoLEP : most likely clear the stone in one session, risk of complications mainly damage to bladder ( perforation, , need to reconstruct). pain, bleeding, infection, injury to surrounding structures, need for prolonged catheter , failure to remove all prostate, need for additional procedures Patient may experience urgency, transient СВЕТЛАНА/ UUI or LUZ MARINA, if persistent may need further medical or surgical therapy ( rare) Patient opted for HoLEP ADC OR 09/20/2024, will need 1-2 weeks off work Patient will consider his options and confirm Handed educational material Plan: Annual CHAI for kidney stones Will change insurance plan in Oct 2024 and [facility] will be out of plan I spend a Total Time of 30 minutes. The time spent for patient care includes: PreCharting (eg, review of tests, notes, etc.), Obtaining and/or reviewing separately obtained history (Care Everywhere or paper records), Performing a medically appropriate examination and/or evaluation, Counseling and educating the patient/family/caregiver, Ordering medications, tests, or procedures, Ordering referrals and/or communicating with other health direct care professional (when not separately reported), Documenting clinical information in the electronic or other health record and Care coordination (not separately reported). Otis Harris MD . [facility] - Health Procedure Notes Date/Time Note Provider Source 2024-09-20 07:49:14 Full Operative Note Patient name: Lisa Schwartz Number: [id number] Date of operation: 09/20/2024 Faculty surgeon: Otis Harris Pre-operative diagnosis: BPH with worsening LUTS on medical therapy, CT prostate size 60 cc Post-operative diagnosis: BPH with LUTS Operation performed: Transurethral Laser Enucleation of the Prostate (CPT - 66012) Findings: Normal urethra and bladder mucosa. No lesions or masses were seen. The prostate appeared obstructive bilobar with small median lobe with high bladder neck, . Clear efflux drained from both ureteral orifices and preserved by the end of the case after enculating adenoma, multiple bladder stones washed out and significant retro-trigonal adenoma. The bladder had increased capacity, +++ trabeculation, no tics, no stones . The patient tolerated the procedure well. There were no complications in this procedure. Enculation time :11:58 mins Hemostasis time :7:22 mins Morcellation time :0:52 mins Laser time : 15:55 Prostate chips : 8 g The patient was taken to the OR where a timeout was performed amongst all operative staff. GETA was administered per anesthesiology and the patient was given Ancef as a bob-procedural antibiotic. The patient was then positioned in dorsal lithotomy position and prepped/draped in the usual sterile fashion. The meatus was initially calibrated from 18 to 30 Fr sequentially with [place] urethral sounds. A resectoscope with a visual obturator was then advanced per urethra into the bladder and the bladder was emptied. A laser bridge was then introduced and a 550 micron Holmium laser was introduced. The prostate was noted to be large and tri-lobar in appearance. No suspicious lesions or masses were noted within the bladder. Beginning at the level of the verumontanum, the prostate was systematically enucleated. Enucleation was initiated posteriorly near the apex and continued laterally before advancing the enucleation anteriorly. After the anterior enucleation plane was created, the bladder was entered and the bladder neck was incised bilaterally until the anterior and posterior enucleation planes were join. The remaining posterior attachments were then then incised until the prostatic adenoma had been fully enucleated. The prostatic adenoma was then advanced into the bladder lumen and a transurethral morcellator was introduced. The prostatic adenoma was fully morcellated and evacuated from the bladder. Final cystoscopy demonstrated no evidence of residual adenoma within the bladder or prostatic fossa. Hemostasis was achieved with the laser fiber. All instrumentation was then removed and a 22 Fr 3-way catheter was advanced per urethra into the bladder over a guide wire due to high bladder neck with 50 cc of sterile water in the catheter balloon. CBI was initiated with CYU output. This concluded the procedure, there were no complications. The patient was safely extubated and transferred to PACU in stable condition. Complications: none Estimated blood loss: 50 mL Specimens: prostate chips Drains: 22 Fr catheter as above Patient's Condition: stable to PACU Otis Harris MD [facility] Notes Date/Time Note Provider Source 2024-11-30 14:15:34 Patient had transurethral laser enculation of prostate on 09/20/24, follow up appointment scheduled for 12/13/24. He reports he has been taking it BID and his last dose was 11/28/24. Please advise if the rx needs to be sent or if it is not necessary since being post op. [facility] Aysha Riddle RN [facility] 2024-09-20 10:11:21 Addended by: OTIS HARRIS on: 09/20/2024 10:11 AM Modules accepted: Orders [facility] 2024-09-18 14:32:19 Noted, patient has no upcoming appointments with [facility]. [facility] Angelita Castillo RN [facility] 2024-09-15 17:54:59 Patient said that he will change insurance plan in Oct 2024 and [facility] will be out of plan [facility] 2024-09-15 17:46:[address] Harris for review. [facility] Angelita Castillo RN [facility] 2024-09-14 16:00:00 Images from the original note were not included. Venipuncture collection performed by clean technique on the left forearm(s). Total of 1 attempts were made. Slight pressure and a bandage/dressing were applied to the site(s). The patient experienced no complications. The following specimens were processed according to instructions and sent to [facility] laboratories per lab order on .09/14/2024 : LT BLUE 1 SST RED 1 LAV PPT DK GREEN (LiHep) DK GREEN (SodH) RINALDI DK BLUE (K2) DK BLUE (S) ACD Blood Culture NIPT/NTD Patient has been identified by and name and was provided with cup, antiseptic towelette, and clean catch instructions. 1 urine specimen(s) sent. Unpreserved 1 Urine Culture Aptima tube Other urine [facility] 2024-09-14 15:35:40 Received surgical clearance from uploaded to chart under media. Nugent [facility] 2024-09-13 11:59:24 Images from the original note were not included. Your procedure is at [facility] on 09/20/24. The address is [address] [place] [address], [id number]. [facility] nursing staff will call you the workday before your procedure to let you know what time to arrive.On the day of your procedure, please go inside that door and check in at the desk. Please note: You may not travel home alone and that includes in a taxi or by bus. We must speak to your Responsible Adult (who will be picking you up) the morning of your procedure, before the start of your procedure. This person must be an adult over the age of 18 years of age. Do not eat any solid food after midnight the night before surgery. You may have sips of clear liquids such as water, gatorade, and sprite up until two hours before your scheduled procedure. You may take your medications with a sip of water as directed by physician. Anticoagulants will be per physician guidance. Medication Note(s)/Instructions: Hold Losartan the day before and the morning of the procedure. Hold Hydrochlorothiazide the morning of the procedure. Nothing to eat after midnight the day before and nothing to eat the morning of the procedure. The patient was educated on medication procedure. Teach-back method repeated and confirmed. There are orders for Lab work. The patient is aware it needs to be done prior to procedure and will come to do them. Understanding was verbalized, with no questions or concerns at this time. The patient was informed that they would receive a call between 12-3pm the day before the procedure for arrival time. COVID SCREENING NOTE: Denies COVID OR FLU-LIKE symptoms at this time, no testing required. [facility] 2024-09-13 08:56:55 Patient notified of results/recommendations, understanding was verbalized via teach back. PCP clearance sent to Dr Huerta/ DARYL Salas at this time. FAX# [phone] [facility] 2024-09-12 15:41:50 Addended by: OTIS HARRIS on: 09/12/2024 03:41 PM Modules accepted: Orders [facility] 2024-09-12 15:38:28 Will post for 09/20/2024 Needs up to date Ucx and labs PCP clearance for surgery [facility] 2024-09-12 11:30:17 Pt called in and said he has decided he is ready schedule the HOLEP for 09/[address] Harris Please Assist BAG BUFFER Everton Tim [facility]2024-11-25 10:32:51* Eulogio Ya, ANTHONY - 08/28/2024 9:00 AM AIR BAG BUFFER CHIEF COMPLAINT: HALLUX RIGIDUS, LEFT HISTORY OF PRESENT ILLNESS: Patient works as a milk delivery driver Patient recently seen by alternate operations specialist, patient was confused about the treatment plan and requesting a second opinion in our office, approximately April 2024 Patient states worsening pain and decreased range of motion at 1st metatarsal phalangeal joint Patient denies recent injury or other event to elicit symptoms Patient states pain currently rated 4/10 on palpation and with range of motion, 1st metatarsophalangeal joint PHYSICAL EXAM OF THE LOWER EXTREMITY: Vascular (+) edema about the 1st metatarsal phalangeal joint (-) ecchymosis (-) erythema Dorsal pedis pulse, bilateral - 2/4; Posterior tibial pulse, bilateral- 2/4 Capillary Refill time: within normal limits (-) varicosities (+) pedal hair growth Neurological (+) sensation with 5.07 [place] Tamiko monofilament to the most distal lower extremity (-) tinel's sign (-) clonus present Dermatological (-) signs of soft tissue infection, (-) open wounds, (-) abscess (-) other primary or secondary lesions (+) normal temperature when compared to contralateral limb (+) normal color, tugor, and elasticity Musculoskeletal (+) Large exostosis, LEFT dorsal FIRST metatarsal phalangeal joint (+) pain on palpation and with range of motion, 1st metatarsophalangeal joint (+) pain with impaction of the 1st metatarsal phalangeal joint (+) arthritic crepitation during range of motion, LEFT 1st metatarsal phalangeal joint (+) limited dorsiflexion range of motion, < 5 degrees dorsiflexion LEFT FIRST metatarsal phalange joint (+) Approximately 45 degrees range of motion, RIGHT foot FIRST metatarsophalangeal ASSESSMENT: Hallux Rigidus, LEFT TREATMENT PLAN: - Extensive visit discussing causes of arthritis and reasons to treat the complication to avoid pain and mobility -Jtmh-jqlv-edkwmdetyb with wqxu-fiy-insvcni NSAIDs as needed - Discussion - Informed about conservative and surgical options, will attempt conservative treatments 1st with padding, support, and shoe gear modification before considering surgical intervention. - X-rays - ORDERED 08/28 - surgery -FIRST metatarsophalangeal joint - Return 4 weeks for imaging review and surgical planning Patient advised to report to my clinic or the emergency room immediately with any questions or concerns.Patient Instructions: Discussion: A detailed discussion was provided to the patient with specific reference to etiology, pathology,alternate treatment options, and prognosis. All risks and complications (including side effects) with eachtreatment/medication alternative were outlined in detail including but not limited to: Pain, swelling, numbness,loss of function, loss of limb, bleeding, hematoma, scarring, failure to relieve condition, surgery, additional/revisional surgery, reflex sympathetic dystrophy, complex regional pain syndrome, reoccurrence of deformity,joint stiffness, flail toe, bone and/or soft tissue infection, blood clots, pulmonary embolism, possible ,delayed or non-healing. X-rays, graphs and drawings were all used to assist with patient comprehension whenappropriate. All patients questions were answered and stated they fully understood. No guarantee as to resultsor outcome of treatment was made. I have discussed with the patient or legally responsible person prior toobtaining consent: the risks, potential benefits and drawbacks, significant alternatives, potential for problemsrelated to recuperation, likelihood of success, and possible results of non-treatment, and the patient or thelegally responsible person has agreed to proceed. [place] [id number] 10:32:51Upcoming Encounters Health Maintenance Due Date Last Done Comments CT Colonography 1955 Colonoscopy 1955 FIT 1955 FOBT 1955 Lipid Panel 1955 Medicare Annual Wellness (AWV) 1955 Sigmoidoscopy 1955 Annual Physical 01/11/1959 DTaP/Tdap/Td Vaccines (1 - Tdap) 01/11/1975 Zoster Vaccines (1 of 2) 01/11/2006 Pneumococcal Vaccine: 65+ Years (1 of 1 - PCV) 01/11/2021 Influenza Vaccine (#1) 2024 Colorectal Cancer Screening 09/23/2024 FIT-DNA 09/23/2024 09/23/2021, 09/23/2021 Respiratory Syncytial Virus (RSV) or >=60 (1 - 1-dose 75+ series) 01/11/2031 HIB Vaccines Aged Out No longer eligi ble based on patient's age to complete this topic HPV Vaccines Aged Out No longer eligi ble based on patient's age to complete this topic Hepatitis A Vaccines Aged Out No long er eligible based on patient's age to complete this topic Hepatitis B Vaccines Aged Out No long er eligible based on patient's age to complete this topic IPV Vaccines Aged Out No longer eligi ble based on patient's age to complete this topic Meningococcal Vaccine Aged Out No livan mady eligible based on patient's age to complete this topic Rotavirus Vaccines Aged Out No longer eligible based on patient's age to complete this topic [facility]48[facility]68 10:32:51 Diagnosis Abnormal foot finding - Prim sergey [facility]entonTnvryjo6037-51-23 13:46:23 Spoke with patient, patient request toreturn to work 03/04/24. Letter sent via [employer] at this time. [facility]8920[facility] 16:57:37 Pt is scheduled to return to Clinic in May. Everton DumontOhio[facility] HospitalXyqbzy9851-18-99 16:53:26 Addended by: OTIS HARRIS on: 03/02/2024 04:53 PM Modules accepted: Orders [facility] HospitalMrlsqc5838-37-02 16:45:06 I called patient and explained the CT results showed no obvious urological cause of LUQ pain and low Kidney function within normal limits CT : 1. 11 mm nonobstructing stone in the lower pole of the right kidney. A second punctate 1-2 mm stone also seen in the lower pole of the right kidney. No left kidney stone. No obstructive hydronephrosis or hydroureter on either side. 2. Enlarged prostate and thickened lau of the urinary bladder. 3. Probable small gallstones which should be further confirmed by ultrasound, if clinically indicated. 4. Subcentimeter hypodense lesions in the right lobe of the liver, and largest 13 mm hypodense lesion in the left lobe consistent with hepatic cysts. 5. Stable 14 mm right adrenal gland nodule. Minimal increase in cystic mass in the lateral right kidney from 20 mm to 22 mm since 07/26/2023 study. Findings are still suggestive of Bosniak type I renal cyst. 6. Constipation, diverticulosis of the large bowel without any acute changes. Pain might be related to constipation and D.D Plan Follow up with PCP for megaplatelets , abdominal pain , gall stones , right liver cyst , Diverticulosis and constipation Refer to Endocrine for right adrenal glans I explained to patient that I can't sign note for work as requested till 03/18/2024 Observe right kidney stone, can consider elective Right USM in April , patient declined OTC analgesia If severe pain attend ER All questions answered, patient voiced understanding RTC to assess stone 3 months [facility]2024-05-30 15:38:26 Pt was seen 03/[address] Scan done today, he is requesting a note for work until Sat 03/04. Please Assist Everton DumontOhio[facility] W[facility] HospitalOqzmik9822-10-12 14:00:00 Images from the original note were not included. Venipuncture collection performed by clean technique on the left anticubitus. Total of 1 attempts were made. Slight pressure and a bandage/dressing were applied to the site(s). The patient experienced no complications. The following specimens were processed according to instructions and sent to [facility] laboratories per lab order on 03/02/2024: LT BLUE SST 1 RED LAV 1 PPT DK GREEN (LiHep) DK GREEN (SodH) RINALDI DK BLUE (K2) DK BLUE (S) ACD Blood Culture NIPT/NTD Pt here for Alzweri orders. [place] [id number] 14:40:40 Reaching out to nir and [facility] scheduling staff to get pt schedule. [facility] Lata FuNovant HealthKotofe2536-38-28 13:23:22 Previous referral was placed stat please reach out to scheduling staff for expedited appointment with renal lesions specialist [place] [address]08-12-27 13:21:[address] a stat referral patient needs to be evaluated by Dr. Pfeiffer or Dr. Rosales [place] [address]08-12-27 11:45:04 Lisa Schwartz is a 68 year old male Pt is calling due to him being confused about if he is to go to the appointment in [place] on 10/26/2022, or if he should schedule with Next available appointment for [facility] in [place] is 01/04/2024 and pt does not want to drive to [place]. Please call pt to verify, (home) [place] [address]-08-03 10:35:18Addended by: ANSLEY TONG on: 05/06/2023 10:35 AM Modules accepted: Orders [place] 73955-08-02 15:44:07 Spoke with patient via phone. Informed patient we received the results yesterday. Once provider reviews results we will contact him. Naina Guptaes CONRADOhio[facility] W[facility] HospitalQeqnnu2008-66-58 14:54:31 Patient requesting a call back with CT results. Toshia BuiOhioHealth Van Wert HospitalJhoasd6918-91-76 12:34:08 Patient informed of Dominguez recommendations for CT and cystoscope r/t microscopic hematuria. Patient verbalizes understanding and states he has scheduled CT appointment. Patient declines cystoscopyat this time requesting CT results first and then to discuss with provider if cystoscope is still re commended. Patient states he feels this way because his brother has had a cystoscope and told him how painful it was. This RN attempted to provide reassurance that numbing medication is provided to make the procedure as comfortable as possible for the patient. Patient verbalizes understanding but co ntinues to request provider review CT results first and then contact him of cystoscope is still recommended. Renee Aiken [facility] CenterVntbdu7252-58-53 11:19:33 Pt wants to know why the provider placed CT order. Please advise. [phone] [facility]
--- NOTE | 2025-01-06 13:54 | RAD REPORT ---
EXAMINATION: XR RIGHT KNEE CLINICAL INDICATION: Male, 69 years old. SWELLING TECHNIQUE: Multiple views of the right knee were obtained. COMPARISON: No prior exam. FINDINGS: Severe osteoarthritis is present with xjsq-np-ghuu medially. Moderate suprapatellar joint e ffusion. No fracture appreciated.
[2025-01-06] MEDS ORDERED: LIDOCAINE 1% 20 ML MDV ONE (13:55)
--- NOTE | 2025-01-06 13:55 | RAD REPORT ---
EXAMINATION: XR LEFT KNEE CLINICAL INDICATION: SWELLING TECHNIQUE: Multiple projections of the left knee were obtained. COMPARISON: No prior exam. FINDINGS: Advanced tricompartmental osteoarthritis with larx-kj-lwmq medially. Small suprapatellar j oint effusion. No acute fracture or dislocation.
[2025-01-06] MEDS ORDERED: NA CHLORIDE 0.9% 250 ML ONE (14:49)
[2025-01-06] MEDS ORDERED: VANCOMYCIN 1 GM/VIAL ONE (14:49)
[2025-01-06 14:54] LABS: Absolute Basophils 0.1 K/uL (0-0.5); Absolute Lymphocytes (CBC) 0.6 K/uL (0.7-4.9); Absolute Monocytes 1.5 K/uL (0.1-1.3); Absolute Neutrophil 12.3 K/uL (1.8-8.0); Basophils % 0.6 % (0-1.3); Hematocrit 41.4 % (39.6-49.0); MCH 31.3 pg (27.0-35.0); MCHC 33.9 g/dL (32.0-36.0); MCV 92.2 fL (80-100); Monocytes % 10.6 % (3.3-12.3); Neutrophils % 84.8 % (41.7-73.7); Nucleated Red Blood Cells % 0.1 % (0-0); Platelets 423 thou/uL (152-406); RBC Red Blood Cell Count 4.49 M/uL (4.33-5.43); Red Cell Distribution Width 14.5 % (12.1-15.2)
--- NOTE | 2025-01-06 15:09 | RAD REPORT ---
EXAMINATION: US RIGHT LOWER EXTREMITY VENOUS DOPPLER CLINICAL INDICATION: SWELLING RIGHT TECHNIQUE: Complete bilateral duplex sonography of the RIGHT lower extremity veins was performed. The examination included compression for vein patency, color Doppler imaging and flow augmentation in response to distal compression of the distal external iliac, common femoral, femoral, popliteal, tibi al, and great and small saphenous veins. COMPARISON: No prior exam. FINDINGS: Duplex sonography testing of the veins of the RIGHT lower extremity was performed. Color flow imaging shows all veins to be compressible with zczp-lf-bugl color filling. Pulsatile and phasic flow is present within all lower extremity deep and superficial veins examined. Large 6 x 5 cm Espinoza's cyst. IMPRESSION: There is no deep vein or superficial vein thrombosis. Large 6 x 5 cm Espinoza's cyst.
[2025-01-06 15:14] LABS: Albumin 2.6 g/dL (3.4-5.0); Albumin/Globulin Ratio 0.5 (1.1-1.8); Anion Gap 11.9 mEq/L (5.0-15.0); Bilirubin Total 1.3 mg/dL (0.2-1.0); Globulin 4.8 g/dL (2.3-3.5); Potassium 3.9 mEq/L (3.5-5.1); Protein, Total 7.4 g/dL (6.4-8.2)
[2025-01-06] MEDS ORDERED: NA CHLORIDE 0.9% 100 ML ONE (15:18)
[2025-01-06] MEDS ORDERED: CEFEPIME 1 GM/VIAL ONE (15:18)
[2025-01-06] MEDS ORDERED: ONDANSETRON 4 MG/2 ML VIAL ONE (15:33)
[2025-01-06] MEDS ORDERED: MORPHINE 4 MG/ML SYR ONE (15:34)
[2025-01-06 15:47] LABS: Tube # SINGLE
[2025-01-06 15:48] LABS: Appearance VERY TURBID (CLEAR); Body Fluid Source SYNOVIAL; Color of Supernate ND (Not Xantho); Color of fluid Yellow (COLORLESS)
--- NOTE | 2025-01-06 16:17 | EDPHYS ---
Physician Documentation [facility] Name: Pankaj Schwartz Age: 69 yrs Sex: Male : 1955 Arrival Date: 01/06/2025 Time: 13:05 Bed 8 Private MD: ED Physician Yodit Trinh HPI: 01/06 14:35 This 69 yrs old Male presents to ER via EMS with complaints of Leg Swelling. sp3 14:35 69-year-old male with history of hypertension and bilateral osteo arthritis of the sp3 knees presents with bilateral knee pain with significant swelling in the right knee extending all the way to his ankle with redness on the skin as well. Patient denies any known injury. He sees Dr. Jacobson who is evaluating him for bilateral knee replacements. Patient denies any calf pain, chest pain, shortness of breath, fever or any other signs or symptoms on ROS at this time.. Historical: - Allergies: 13:08 No Known Allergies; ph - PMHx: 13:08 Hypertensive disorder; ph - Immunization history:: Adult Immunizations unknown. - Infectious Disease History:: Denies. - Social history:: Smoking status: unknown. ROS: 14:36 Constitutional: Negative for fever, chills, and weight loss, Eyes: Negative for injury, sp3 pain, redness, and discharge, ENT: Negative for injury, pain, and discharge, Neck: Negative for injury, pain, and swelling, Cardiovascular: Negative for chest pain, palpitations, and edema, Respiratory: Negative for shortness of breath, cough, wheezing, and pleuritic chest pain, Abdomen/GI: Negative for abdominal pain, nausea, vomiting, diarrhea, and constipation, Back: Negative for injury and pain, Neuro: Negative for headache, weakness, numbness, tingling, and seizure, Psych: Negative for depression, anxiety, suicide ideation, homicidal ideation, and hallucinations, Allergy/Immunology: Negative for hives, rash, and allergies, 14:36 All other systems are negative, Exam: 14:36 Constitutional: This is a well developed, well nourished patient who is awake, alert, sp3 and in no acute distress. Head/Face: Normocephalic, atraumatic. Eyes: Pupils equal round and reactive to light, extra-ocular motions intact. Lids and lashes normal. Conjunctiva and sclera are non-icteric and not injected. Cornea within normal limits. Periorbital areas with no swelling, redness, or edema. Neck: Trachea midline, no thyromegaly or masses palpated, and no cervical lymphadenopathy. Supple, full range of motion without nuchal rigidity, or vertebral point tenderness. No Meningismus. Chest/axilla: Normal chest wall appearance and motion. Nontender with no deformity. No lesions are appreciated. Cardiovascular: Regular rate and rhythm with a normal S1 and S2. No gallops, murmurs, or rubs. Normal PMI, no JVD. No pulse deficits. Respiratory: Lungs have equal breath sounds bilaterally, clear to auscultation and percussion. No rales, rhonchi or wheezes noted. No increased work of breathing, no retractions or nasal flaring. Abdomen/GI: Soft, non-tender, with normal bowel sounds. No distension or tympany. No guarding or rebound. No evidence of tenderness throughout. Back: No spinal tenderness. No costovertebral tenderness. Full range of motion. Neuro: Awake and alert, GCS 15, oriented to person, place, time, and situation. Cranial nerves II-XII grossly intact. Motor strength 5/5 in all extremities. Sensory grossly intact. Cerebellar exam normal. Normal gait. Psych: Awake, alert, with orientation to person, place and time. Behavior, mood, and affect are within normal limits. 14:36 Musculoskeletal/extremity: Left knee with mild swelling. Right knee with joint effusion particularly suprapatellar region with edema extending distally. Right ankle also swollen with overlying erythema.. Vital Signs: 13:07 BP 105 / 77; Pulse 95; Resp 18; Temp 98.8; Pulse Ox 95% ; Weight 127.01 kg; Height 5 ph ft. 10 in. ; 14:30 BP 105 / 78; Pulse 94; Resp 18; Pulse Ox 96% on R/A; ph 16:00 BP 101 / 82; Pulse 91; Resp 18; Pulse Ox 95% on R/A; ph 17:32 BP 108 / 77; Pulse 91; Resp 18; Temp 98.9; Pulse Ox 95% on R/A; ph 18:29 BP 105 / 72; Pulse 92; Resp 18; Temp 98.9; Pulse Ox 95% on R/A; ph 13:07 Body Mass Index 40.18 (127.01 kg, 177.8 cm) ph MDM: 13:07 Medical Screening Exam initiated sp3 14:37 Data reviewed: vital signs, nurses notes, lab test result(s), radiologic studies. ED sp3 course: 69-year-old male with bilateral knee effusions with history of osteoarthritis and right ankle swelling and cellulitis of the right lower extremity. Right knee was drained by me after local anesthesia with lidocaine 1% with approximately 60 mL of synovial fluid removed, yellow in color, slightly cloudy. Fluid has been sent for analysis. Right ankle attempted x 1 with no fluid extraction. Ultrasound also pending to assess for potential DVT coupled with labs and cultures. Vancomycin 1 g given. X-rays demonstrate severe osteoarthritis only with no other abnormalities. Probable admission once data is reviewed.. 16:14 ED course: . sp3 01/06 14:15 Order name: Blood Culture Adult (2) sp3 01/06 14:15 Order name: CBC with Diff; Complete Time: 15:13 sp3 01/06 14:15 Order name: CMP; Complete Time: 15:31 sp3 01/06 14:15 Order name: Lactate w/ 2H reflex if indic.; Complete Time: 15:31 sp3 01/06 14:34 Order name: Crystals, Fluid; Complete Time: 16:09 sp3 01/06 14:34 Order name: Fluid Cell Count,Body; Complete Time: 16:51 sp3 01/06 14:34 Order name: Body Fluid Culture sp3 01/06 16:12 Order name: Uric Acid; Complete Time: 16:51 sp3 01/06 17:23 Order name: Urinalysis w/ reflexes EDMS 01/06 17:23 Order name: Basic Metabolic Panel EDMS 01/06 17:23 Order name: Basic Metabolic Panel EDMS 01/06 17:23 Order name: Basic Metabolic Panel EDMS 01/06 17:23 Order name: Basic Metabolic Panel EDMS 01/06 17:23 Order name: Basic Metabolic Panel EDMS 01/06 17:23 Order name: Basic Metabolic Panel EDMS 01/06 17:23 Order name: CBC with Automated Diff EDMS 01/06 17:23 Order name: CBC with Automated Diff EDMS 01/06 17:23 Order name: CBC with Automated Diff EDMS 01/06 17:23 Order name: CBC with Automated Diff EDMS 04/05 17:23 Order name: CBC with Automated Diff EDMS 04/ 17:23 Order name: CBC with Automated Diff EDMS 04/ 17:23 Order name: Magnesium EDMS 04/05 17:23 Order name: Magnesium EDMS 04/05 17:23 Order name: Magnesium EDMS 04/05 17:23 Order name: Magnesium EDMS 04/05 17:23 Order name: Magnesium EDMS 04/05 17:23 Order name: Magnesium EDMS 04/05 17:23 Order name: Phosphorus EDMS 04/05 17:23 Order name: Phosphorus EDMS 04/05 17:23 Order name: Phosphorus EDMS 04/ 17:23 Order name: Phosphorus EDMS 04/05 17:23 Order name: Phosphorus EDMS 04/ 17:23 Order name: Phosphorus EDMS 04/05 13:07 Order name: Knee Left 2 View XRAY; Complete Time: 13:57 sp3 01/06 13:07 Order name: Knee Right 2 View XRAY; Complete Time: 13:57 sp3 01/06 14:15 Order name: US Extremity Venous Unilateral Ltd; Complete Time: 15:13 sp3 01/06 17:23 Order name: CONS Physician Consult EDMS 01/06 14:15 Order name: IV Saline Lock - Large Bore; Complete Time: 16:17 sp3 01/06 14:15 Order name: Labs collected and sent; Complete Time: 16:17 sp3 01/06 14:15 Order name: Vital Signs; Complete Time: 16:17 sp3 Administered Medications: 15:30 Drug: Cefepime IVPB 1 grams IVPB at 200 ml/hr once over 30 mins; (mix in NS 100 mL) ph Route: IVPB; Rate: 200 ml/hr; Infused Over: 30 mins; Site: right hand; 16:00 Follow up: Response: No adverse reaction; IV Status: Completed infusion ph 15:40 Drug: morphine IVP or IV 4 mg IVP once over 4 mins Route: IVP; Infused Over: 4 mins; ph Site: right hand; 16:00 Follow up: Response: No adverse reaction; Pain is decreased ph 15:40 Drug: Ondansetron IVP 4 mg IVP once; over 2 minutes Route: IVP; Site: right hand; ph 17:30 Follow up: Response: No adverse reaction ph 17:10 Drug: vancoMYCIN IVPB 1 grams IVPB once over 2 hrs Route: IVPB; Infused Over: 2 hrs; ph Site: right hand; 17:30 Follow up: Response: No adverse reaction; IV Status: Infusion continued upon admission ph 18:29 Follow up: Response: No adverse reaction; IV Status: Completed infusion ph Disposition Summary: 01/06/25 16:16 Hospitalization Ordered Notes: Hospitalization Status: Inpatient Admission sp3 Provider: Jorge Mckeon sp3 [facility] Condition: Stable sp3 Problem: an acute exacerbation sp3 Symptoms: have worsened sp3 Bed/Room Type: Standard sp3 Room Assignment: 408(01/06/25 17:29) eb Diagnosis - Cellulitis, bilateral knee effusions sp3 Forms: - Medication Reconciliation Form sp3 - SBAR form sp3 - Leadership Thank You Letter sp3 Signatures: Dispatcher [employer] EDBrie Jeffers RN RN Essie Yeboah Setul, MD MD sp3 Corrections: (The following items were deleted from the chart) 13:08 13:08 Knee Right 2 View+RAD.RAD.BRZ ordered. EDMS EDMS 14:16 14:16 BLOOD CULTURE*+BA.LAB.BRZ ordered. EDMS EDMS 14:16 14:16 CBC+H.LAB.BRZ ordered. EDMS EDMS 14:16 14:16 COMPREHENSIVE METABOLIC PANEL+C.LAB.BRZ ordered. EDMS EDMS 14:16 14:16 LACTATE+C.LAB.BRZ ordered. EDMS EDMS 14:16 14:16 Extremity Venous Uni Ltd+US.RAD.BRZ ordered. EDMS EDMS 17:29 16:16 sp3 eb
--- NOTE | 2025-01-06 16:17 | ER ---
Nurse's Notes [facility] Name: Pankaj Schwartz Age: 69 yrs Sex: Male : 1955 Arrival Date: 01/06/2025 Time: 13:05 Bed 8 Private MD: Diagnosis: Cellulitis, bilateral knee effusions Presentation: 01/06 13:07 Chief complaint: EMS states: Pain to bilateral knees, swelling, redness and pain to R ph ankle. Coronavirus screen: Vaccine status: Patient reports receiving the 2nd dose of the covid vaccine. Ebola Screen: No symptoms or risks identified at this time. Initial Sepsis Screen: Does the patient meet any 2 criteria? No. Patient's initial sepsis screen is negative. Does the patient have a suspected source of infection? No. Patient's initial sepsis screen is negative. Risk Assessment: Do you want to hurt yourself or someone else? Patient reports no desire to harm self or others. 13:07 Method Of Arrival: EMS: [facility] 13:07 Acuity: ABRAHAM 3 13:22 Onset of symptoms was January 06, 2025. Triage Assessment: :22 General: Appears in no apparent distress. uncomfortable, well groomed, Behavior is ph calm, cooperative, appropriate for age. Pain: Complains of pain in right knee and anterior aspect of right ankle. Pain: Complains of pain in left knee. Neuro: Level of Consciousness is awake, alert, obeys commands, Oriented to person, place, time, situation. Cardiovascular: Capillary refill < 3 seconds in bilateral fingers Patient's skin is warm and dry. Respiratory: Airway is patent Respiratory effort is even, unlabored. Derm: Skin is pink, warm \T\ dry. Musculoskeletal: Circulation, motion, and sensation intact. Range of motion: intact in all extremities, Swelling present in bilateral knees and R ankle. Historical: - Allergies: 13:08 No Known Allergies; ph - PMHx: 13: Hypertensive disorder; ph - Immunization history:: Adult Immunizations unknown. - Infectious Disease History:: Denies. - Social history:: Smoking status: unknown. Screenin:22 [facility] ED Fall Risk Assessment (Adult) History of falling in the last 3 months, ph including since admission No falls in past 3 months (0 pts) Confusion or Disorientation No (0 pts) Intoxicated or Sedated No (0 pts) Impaired Gait Yes (1 pt) Mobility Assist Device Used No (0 pt) Altered Elimination No (0 pt) Score/Fall Risk Level 0 - 2 = Low Risk Oriented to surroundings, Maintained a safe environment, Hourly rounding (assess needs \T\ fall precautionary measures) done. Abuse screen: Denies threats or abuse. Denies injuries from another. Nutritional screening: No deficits noted. Tuberculosis screening: No symptoms or risk factors identified. Assessment: 14:30 General: SEE TRIAGE ASSESSMENT. ph Vital Signs: 13:07 BP 105 / 77; Pulse 95; Resp 18; Temp 98.8; Pulse Ox 95% ; Weight 127.01 kg; Height 5 ph ft. 10 in. ; 14:30 BP 105 / 78; Pulse 94; Resp 18; Pulse Ox 96% on R/A; ph 16:00 BP 101 / 82; Pulse 91; Resp 18; Pulse Ox 95% on R/A; ph 17:32 BP 108 / 77; Pulse 91; Resp 18; Temp 98.9; Pulse Ox 95% on R/A; ph 18:29 BP 105 / 72; Pulse 92; Resp 18; Temp 98.9; Pulse Ox 95% on R/A; ph 13:07 Body Mass Index 40.18 (127.01 kg, 177.8 cm) ph ED Course: 13:06 Patient arrived in ED. ph 13:06 Yodit Trinh MD is Attending Physician. sp3 13:08 Triage completed. ph 13:08 Arm band placed on Patient placed in an exam room, on a stretcher, on pulse oximetry. ph 13:21 Brie Shelton, RN is Primary Nurse. ph 13:22 Patient has correct armband on for positive identification. Bed in low position. Call ph light in reach. Side rails up X 1. Door closed. Noise minimized. Warm blanket given. 13:24 No provider procedures requiring assistance completed. ph 13:46 Knee Left 2 View XRAY In Process Unspecified. EDMS 13:46 Knee Right 2 View XRAY In Process Unspecified. EDMS 14:00 Assist provider with aspiration of right knee using 18 gauge needle, Lidocaine, fluid ph removed was cloudy, yellow, Set up for procedure. Performed by Yodit Trinh MD Dressed with band aid, 4X4s, Patient tolerated well. 14:40 Missed attempt(s): 20 gauge in right antecubital area. Bleeding controlled, band aid ph applied, catheter tip intact. 14:50 Initial lab(s) drawn, by me, sent to lab. Inserted saline lock: 22 gauge in right hand, ph using aseptic technique. Flushed with 10 mL NS. 15:03 US Extremity Venous Unilateral Ltd In Process Unspecified. EDMS 16:16 Jorge Mckeon is Hospitalizing Provider. sp3 18:30 Patient admitted, IV remains in place. ph Administered Medications: 15:30 Drug: Cefepime IVPB 1 grams IVPB at 200 ml/hr once over 30 mins; (mix in NS 100 mL) ph Route: IVPB; Rate: 200 ml/hr; Infused Over: 30 mins; Site: right hand; 16:00 Follow up: Response: No adverse reaction; IV Status: Completed infusion ph 15:40 Drug: morphine IVP or IV 4 mg IVP once over 4 mins Route: IVP; Infused Over: 4 mins; ph Site: right hand; 16:00 Follow up: Response: No adverse reaction; Pain is decreased ph 15:40 Drug: Ondansetron IVP 4 mg IVP once; over 2 minutes Route: IVP; Site: right hand; ph 17:30 Follow up: Response: No adverse reaction ph 17:10 Drug: vancoMYCIN IVPB 1 grams IVPB once over 2 hrs Route: IVPB; Infused Over: 2 hrs; ph Site: right hand; 17:30 Follow up: Response: No adverse reaction; IV Status: Infusion continued upon admission ph 18:29 Follow up: Response: No adverse reaction; IV Status: Completed infusion ph Medication: 13:23 VIS not applicable for this client. ph Outcome: 16:16 Decision to Hospitalize by Provider. sp3 18:29 Admitted to Med/surg accompanied by tech, via stretcher, room 408, with chart, ph 18:29 Condition: stable 18:29 Instructed on the need for admit, 18:30 Patient left the ED. ph Signatures: Dispatcher [employer] EDNJ Brie Shelton RN RN ph Yodit Trinh MD MD sp3 Corrections: (The following items were deleted from the chart) 16:16 16:16 morphine IVP or IV 4 mg IVP in right hand over 4 mins ph ph 16:16 16:16 Ondansetron IVP 4 mg IVP in right hand ph ph 16:17 16:16 Cefepime IVPB 1 grams IVPB at 200 ml/hr in right hand over 30 mins ph ph 17:30 17:30 vancoMYCIN IVPB 1 grams IVPB in right hand over 2 hrs ph ph
[2025-01-06 16:39] LABS: Body Fluid WBC 38620 /mm^3
[2025-01-06 16:44] LABS: Body Fluid Lymphocytes 0 %; Fluid Total Cells Count 100
[2025-01-06] MEDS: FUROSEMIDE 20 MG/ 2ML VIAL IV ONE ×2 (17:16→22:11)
[2025-01-06] MEDS ORDERED: ACETAMINOPHEN 325 MG TABLET PO PRN (17:16)
--- NOTE | 2025-01-06 17:31 | P.HP ---
Certification for Inpatient Patient admitted to: Observation With expected LOS: <2 Midnights Patient will require the following post-hospital care: None Practitioner: I am a practitioner with admitting privileges, knowledge of patient current condition, hospital course, and medical plan of care. Services: Services provided to patient in accordance with Admission requirements found in Title 42 Section 412.3 of the Code of Federal Regulations Patient History Date of Service: 01/06/25 Reason for admission: Right lower extremity cellulitis History of Present Illness: Pankaj Schwartz is a 69 year old male with Pmhx HTN and bilarteral knee osteoarthritis who presents to the ED with bilateral swollen legs and inability to walk. He reports the swelling had been accumulating for the past week but was unable to walk this morning. He sees Dr. Jacobson for evaluation of total knee arthroplasty. While in the ED, Dr. Trinh aspirated the right knee and sent the fluid for culture. Laboratory evaluation significant for WBC 14.5, sodium 133, serum glucose 132, total bilirubin 1.3, AST 40 Right knee xray " Severe osteoarthritis is present with [id number] medially. Moderate suprapatellar joint effusion. No fracture appreciated" Left Knee xray reports "Advanced tricompartmental osteoarthritis with ffth-pi-utlk medially. Small suprapatellar joint effusion. No acute fracture or dislocation" Right lower extremity venous ultrasound report "There is no deep vein or superficial vein thrombosis. Large 6 x 5 cm Espinoza's cyst." Pankaj will be admitted to hospitalist service for further evaluation and treatment. - Past Medical/Surgical History -: HTN Past Surgical History: Reviewed- Non-Contributory - Social History Smoking Status: Former smoker Alcohol use: Yes CD- Drugs: No Review of Systems Other: per HPI Physical Examination - Physical Exam General: Alert, In no apparent distress, Oriented x3 HEENT: Atraumatic, Normocephalic, PERRLA Neck: Supple, 2+ carotid pulse no bruit Respiratory: Clear to auscultation bilaterally, Normal air movement Cardiovascular: No edema Capillary refill: <2 Seconds Gastrointestinal: Normal bowel sounds, Soft and benign Musculoskeletal: Swelling, Erythema, Tenderness, Warmth, Other (to bilateral lower extremities) Integumentary: Tenderness/swelling (bilateral knee, right lower extremity, right ankle) Neurological: Normal speech, Normal tone - Studies Laboratory Data (last 24 hrs) 0401/06/25 01/06/25 14:40 14:40 14:40 WBC 14.50 H Hgb 14.0 Hct 41.4 Plt Count 423 H Sodium 133 L Potassium 3.9 BUN 27 H Creatinine 1.04 Glucose 132 H Uric Acid 5.7 Total Bilirubin 1.3 H AST 40 H ALT 33 Alkaline Phosphatase 107 Assessment and Plan - Plan Assessment and Plan Acute right lower extremity cellulitis Bilateral lower knee swelling Advanced osteoarthritis Leukocytosis -Right knee xray " Severe osteoarthritis is present with tsqa-yt-wobz medially. Moderate suprapatellar joint effusion. No fracture appreciated" -Left Knee xray reports "Advanced tricompartmental osteoarthritis with oney-pi-xvpe medially. Small suprapatellar joint effusion. No acute fracture or dislocation" -Right lower extremity venous ultrasound report "There is no deep vein or superficial vein thrombosis. Large 6 x 5 cm Espinoza's cyst." -Cefepime -Follow fluid cultures -lasix x 1 -Dr. Jacobson consulted Hyperglycemia -A1C in the AM -likely 2/2 Elevated liver enzymes -T bili 1.3, AST 40 -Gentle IVF HTN -continue home medications DVT ppx heparin Full code LOS 24 hour OBS Discharge Plan: Home Plan to discharge in: 24 Hours - Advance Directives Does patient have a Living Will: No Does patient have a Durable POA for Healthcare: No
[2025-01-06] MEDS: CEFEPIME 1 GM in NA CHLORIDE 0.9% 100 ML IV SCH (18:00)
[2025-01-06 18:37] VITALS: BMI 40.1
[2025-01-06] MEDS: NA CHLORIDE 0.9% 500 ML IV SCH (18:48)
[2025-01-06] MEDS ORDERED: CEFEPIME 1 GM in NA CHLORIDE 0.9% 100 ML IV SCH (21:00)
[2025-01-06] MEDS: HYDROCODONE/APAP 5/325 MG TAB PO PRN (22:09)
[2025-01-07 00:58] LABS: Specific Gravity 1.026 (1.005-1.030); Sqamous Epithelial <5 /HPF (None Seen); Urine Bacteria None Seen /HPF (<20); Urine Bilirubin NEGATIVE (Negative); Urine Blood Negative (Negative); Urine Clarity Extremely Turbid (Clear); Urine Color Yellow (Yellow); Urine Culture Reflex Order NOT NEEDED; Urine Glucose NEGATIVE (Negative); Urine Ketones NEGATIVE (Negative); Urine Microscopic Reflex YN ORDER UMIC; Urine Mucus 1+ /HPF (None Seen); Urine Nitrite NEGATIVE (Negative); Urine Protein 1+ (Negative); Urine RBC None Seen /HPF (None Seen); Urine Urobilinogen 2+ (Normal)
[2025-01-07] MEDS: CEFEPIME 1 GM in NA CHLORIDE 0.9% 100 ML IV SCH (02:23)
[2025-01-07] MEDS: HEPARIN 5000 UNIT/ML 1 ML VIAL SQ SCH (02:24)
[2025-01-07 05:12] LABS: Absolute Basophils 0.1 K/uL (0-0.5); Absolute Eosinophils 0.1 K/uL (0-0.5); Absolute Lymphocytes (CBC) 1.2 K/uL (0.7-4.9); Absolute Monocytes 1.7 K/uL (0.1-1.3); Absolute Neutrophil 9.4 K/uL (1.8-8.0); Basophils % 0.7 % (0-1.3); Eosinophils % 0.5 % (0-4.4); Hematocrit 37.9 % (39.6-49.0); Lymphocytes % 9.4 % (15.3-44.8); MCH 31.7 pg (27.0-35.0); MCHC 34.2 g/dL (32.0-36.0); MCV 92.7 fL (80-100); MPV 7.7 fL (7.6-11.3); Monocytes % 13.4 % (3.3-12.3); Platelets 398 thou/uL (152-406); RBC Red Blood Cell Count 4.09 M/uL (4.33-5.43); Red Cell Distribution Width 14.7 % (12.1-15.2)
[2025-01-07 05:28] LABS: Anion Gap 8.7 mEq/L (5.0-15.0); Magnesium 2.4 mg/dL (1.6-2.4); Phosphorus 3.5 mg/dL (2.5-4.9); Potassium 3.7 mEq/L (3.5-5.1)
[2025-01-07] MEDS: POTASSIUM CL SA 10 MEQ TAB PO ONE (09:25)
[2025-01-07] MEDS: ATORVASTATIN 80 MG TAB PO SCH (09:25)
[2025-01-07] MEDS: LOSARTAN POTASSIUM 50 MG TABLET PO SCH (09:26)
[2025-01-07] MEDS: GABAPENTIN 100 MG CAP PO SCH (09:27)
[2025-01-07] MEDS: hydroCHLOROthiazide 25 MG TAB PO SCH (09:27)
--- NOTE | 2025-01-07 10:36 | P.PN ---
Date of Service: 01/07/25 Subjective Feeling some better Right lower extremity with less heat and erythema Removed sock ROS 10 point ROS as noted above, otherwise negative Physical Exam General: Alert and Oriented x3, NAD HEENT: Atraumatic, Normocephalic, PERRLA Neck: Supple, 2+ carotid pulse no bruit Respiratory: Clear BBS, Normal air movement, on RA Cardiovascular: No edema Capillary refill: <2 Seconds Gastrointestinal: Normal active bowel sounds, Soft and benign on palpation Musculoskeletal: Swelling, Erythema, Tenderness, Warmth, Other (to bilateral lower extremities) Integumentary: Tenderness/swelling (bilateral knee, right lower extremity, right ankle) Neurological: Normal speech, Normal tone Vitals Reviewed Problem list Acute right lower extremity cellulitis Bilateral lower knee swelling 2/2 pseudogout Advanced osteoarthritis Leukocytosis Hyperglycemia Elevated liver enzymes HTN Assessment and Plan Acute right lower extremity cellulitis Bilateral lower knee swelling 2/2 pseudogout Advanced osteoarthritis Leukocytosis -Right knee xray " Severe osteoarthritis is present with meii-tr-jnty medially. Moderate suprapatellar joint effusion. No fracture appreciated" -Left Knee xray reports "Advanced tricompartmental osteoarthritis with nuyg-nx-tlmp medially. Small suprapatellar joint effusion. No acute fracture or dislocation" -Right lower extremity venous ultrasound report "There is no deep vein or superficial vein thrombosis. Large 6 x 5 cm Espinoza's cyst." -Cefepime -Follow fluid cultures -lasix x 1 -Dr. Jacobson consulted Hyperglycemia -A1C in the AM -likely 2/2 Elevated liver enzymes -T bili 1.3, AST 40 -Gentle IVF HTN -continue home medications Interval Hospital Course 01/07/25 - Calcium pyrophosphate dihydrate seen in right knee aspiration fluid - Solu-Medrol 125 mg IV x 1 and colchicine started - Continue cefepime - Crutches provided DVT ppx heparin Full code LOS 24 hour OBS
[2025-01-07] MEDS: METHYLPREDNISOLONE 125 MG INJ IV ONE (11:00)
[2025-01-07] MEDS: COLCHICINE 0.6 MG TAB PO SCH (12:04)
[2025-01-07] MEDS: MORPHINE 2 MG/ML SYR IV PRN (20:47)
[2025-01-08 05:42] LABS: Hematocrit 36.6 % (39.6-49.0); Hemoglobin 12.3 g/dL (13.6-17.9); MCV 92.3 fL (80-100); RBC Red Blood Cell Count 3.96 M/uL (4.33-5.43)
[2025-01-08 05:43] LABS: Absolute Lymphocytes (CBC) 0.7 K/uL (0.7-4.9); Absolute Monocytes 0.9 K/uL (0.1-1.3); Absolute Neutrophil 10.1 K/uL (1.8-8.0); Basophils % 0.4 % (0-1.3); Lymphocytes % 5.7 % (15.3-44.8); MCH 31.1 pg (27.0-35.0); MCHC 33.7 g/dL (32.0-36.0); MPV 7.6 fL (7.6-11.3); Neutrophils % 85.9 % (41.7-73.7); Nucleated Red Blood Cells % 0.1 % (0-0); Platelets 438 thou/uL (152-406); Red Cell Distribution Width 14.8 % (12.1-15.2)
[2025-01-08 05:57] LABS: Anion Gap 8.7 mEq/L (5.0-15.0); Magnesium 2.3 mg/dL (1.6-2.4); Phosphorus 3.6 mg/dL (2.5-4.9); Potassium 3.7 mEq/L (3.5-5.1)
[2025-01-08] MEDS: predniSONE 20 MG TAB PO SCH (08:23)
[2025-01-08 08:51] LABS: Blood Morphology Comment NOT SEEN (NOT SEEN); Platelet Estimate INCR; White Blood Cell Scan OK (OK)
--- NOTE | 2025-01-08 13:04 | P.PN ---
Date of Service: 01/08/25 Subjective improving Less pain and swelling today No acute events overnight ROS 10 point ROS as noted above, otherwise negative Physical Exam General: Alert and Oriented x3, NAD HEENT: Atraumatic, Normocephalic, PERRLA Neck: Supple, 2+ carotid pulse no bruit Respiratory: Clear BBS, Normal air movement, on RA Cardiovascular: No edema Capillary refill: <2 Seconds Gastrointestinal: Normal active bowel sounds, Soft and benign on palpation Musculoskeletal: Swelling, Erythema, Tenderness, Warmth, Other (to bilateral low er extremities) Integumentary: Tenderness/swelling (bilateral knee, right lower extremity, right ankle) Neurological: Normal speech, Normal tone Vitals Reviewed Problem list Acute right lower extremity cellulitis Bilateral lower knee swelling 2/2 pseudogout Advanced osteoarthritis Leukocytosis Hyperglycemia Elevated liver enzymes HTN Assessment and Plan Acute right lower extremity cellulitis Bilateral lower knee swelling 2/2 pseudogout Advanced osteoarthritis Leukocytosis -Right knee xray " Severe osteoarthritis is present with grwi-el-rrwa medially. Moderate suprapatellar joint effusion. No fracture appreciated" -Left Knee xray reports "Advanced tricompartmental osteoarthritis with lnlu-in-imuz medially. Small suprapatellar joint effusion. No acute fracture or dislocation" -Right lower extremity venous ultrasound report "There is no deep vein or superficial vein thrombosis. Large 6 x 5 cm Espinoza's cyst." -Cefepime -Follow fluid cultures -lasix x 1 -Dr. Jacobson consulted -Blood cultures with no growth in 24 hours Hyperglycemia -A1C in the AM -likely 2/2 Elevated liver enzymes -T bili 1.3, AST 40 -Gentle IVF HTN -continue home medications Interval Hospital Course 01/07/25 - Calcium pyrophosphate dihydrate seen in right knee aspiration fluid - Solu-Medrol 125 mg IV x 1 and colchicine started - Continue cefepime - Crutches provided 01/08/25 -Stable -Awaiting ortho eval/input DVT ppx heparin Full code <Masoud Fabian Adrián - Last Filed: 01/08/25 13:02> Patient seen and examined. Plan of care discussed with Masoud Fabian. Case discussed with orthopedic Dr. Jacobson. Patient's knee swelling and pain likely secondary to pseudogout. Joint fluid analysis suggested presence of calcium pyrophosphate crystals. Continue steroid and colchicine Analgesics as needed Increase activity as tolerated. Joint fluid culture is pending. Continue antibiotics for now. <leeroy curry - Last Filed: 01/08/25 15:17>
[2025-01-09 06:02] LABS: Absolute Lymphocytes (CBC) 1.5 K/uL (0.7-4.9); Absolute Monocytes 1.4 K/uL (0.1-1.3); Absolute Neutrophil 10.5 K/uL (1.8-8.0); Basophils % 0.1 % (0-1.3); Eosinophils % 0.2 % (0-4.4); Hematocrit 37.7 % (39.6-49.0); Hemoglobin 12.9 g/dL (13.6-17.9); Lymphocytes % 11.1 % (15.3-44.8); MCH 31.6 pg (27.0-35.0); MCHC 34.2 g/dL (32.0-36.0); MCV 92.5 fL (80-100); Monocytes % 10.3 % (3.3-12.3); Neutrophils % 78.3 % (41.7-73.7); Platelets 444 thou/uL (152-406); RBC Red Blood Cell Count 4.07 M/uL (4.33-5.43); Red Cell Distribution Width 14.5 % (12.1-15.2)
[2025-01-09 06:15] LABS: Anion Gap 7.5 mEq/L (5.0-15.0); Magnesium 2.3 mg/dL (1.6-2.4); Phosphorus 2.7 mg/dL (2.5-4.9); Potassium 3.5 mEq/L (3.5-5.1)
[2025-01-09 07:55] VITALS: O2SAT 96
[2025-01-09 12:45] VITALS: BP 150/68; TEMP 97.7
--- NOTE | 2025-01-09 13:26 | P.DS ---
Admission Date: 01/08/25 Discharge Date: 01/09/25 Disposition: ROUTINE DISCHARGE Discharge Condition: GOOD Reason for Admission: Right lower extremity cellulitis Brief History of Present Illness: Pankaj Schwartz is a 69 year old male with Pmhx HTN and bilarteral knee osteoarthritis who presents to the ED with bilateral swollen legs and inability to walk. He reports the swelling had been accumulating for the past week but was unable to walk this morning. He sees Dr. Jacobson for evaluation of total knee arthroplasty. While in the ED, Dr. Trinh aspirated the right knee and sent the fluid for culture. Laboratory evaluation significant for WBC 14.5, sodium 133, serum glucose 132, total bilirubin 1.3, AST 40 Right knee xray " Severe osteoarthritis is present with pnwo-li-rsuj medially. Moderate suprapatellar joint effusion. No fracture appreciated" Left Knee xray reports "Advanced tricompartmental osteoarthritis with fihj-mh-qfvu medially. Small suprapatellar joint effusion. No acute fracture or dislocation" Right lower extremity venous ultrasound report "There is no deep vein or superficial vein thrombosis. Large 6 x 5 cm Espinoza's cyst." Pankaj will be admitted to hospitalist service for further evaluation and treatment. Hospital Course: Problem list Acute right lower extremity cellulitis Bilateral lower knee swelling 2/2 pseudogout Advanced osteoarthritis Leukocytosis Hyperglycemia Elevated liver enzymes HTN Patient was admitted to the hospital for swelling, erythema of the right lower extremity with right knee pain/effusion. Joint aspiration was performed, fluid was yellow, turbid 38,620 white blood cells were present with 2894 red blood cells, 98% neutrophils. Patient was on empiric antibiotics, there were fluid crystals present on the aspirate. Patient was treated with steroids and empiric antibiotics with improvement in his symptoms, he is remained afebrile, he was seen by orthopedics who suspect an inflammatory arthritis/pseudogout. Blood cultures were without growth for 24 hours and there is no growth on the right knee fluid aspirate. Patient is stable for discharge and outpatient follow-up with orthopedics in 1 to 2 weeks Walker was obtained and given to patient to assist with ambulation as he has increased pain. He has noted severe arthritis in both knees and planning on pursuing knee replacement in the future. Patient is on hydrochlorothiazide, following this medication at this time until follow-up with PCP as it can contribute to increased uric acid levels and increase risk of gout. Vital Signs/Physical Exam: Temp Pulse Resp BP Pulse Ox 97.7 F 60 18 150/68 H 94 01/09/25 12:00 01/09/25 12:00 01/09/25 12:00 01/09/25 12:00 01/09/25 12:00 General: Alert, In no apparent distress, Oriented x3 HEENT: Atraumatic, PERRLA Neck: Supple, JVD not distended Respiratory: Clear to auscultation bilaterally, Normal air movement Cardiovascular: Regular rate/rhythm, Normal S1 S2 Gastrointestinal: Normal bowel sounds, No tenderness Musculoskeletal: No tenderness Integumentary: No rashes Neurological: Normal speech, Normal affect Laboratory Data at Discharge: WBC 13.40 thou/uL (4.3-10.9) H 01/09/25 05:34 Hgb 12.9 g/dL (13.6-17.9) L 01/09/25 05:34 Hct 37.7 % (39.6-49.0) L 01/09/25 05:34 Plt Count 444 thou/uL (152-406) H 01/09/25 05:34 Sodium 138 mEq/L (136-145) 01/09/25 05:34 Potassium 3.5 mEq/L (3.5-5.1) 01/09/25 05:34 BUN 23 mg/dL (7-18) H 01/09/25 05:34 Creatinine 0.84 mg/dL (0.70-1.30) 01/09/25 05:34 Glucose 95 mg/dL (74-106) 01/09/25 05:34 Uric Acid 5.7 mg/dL (3.5-7.2) 01/06/25 14:40 Phosphorus 2.7 mg/dL (2.5-4.9) 01/09/25 05:34 Magnesium 2.3 mg/dL (1.6-2.4) 01/09/25 05:34 Total Bilirubin 1.3 mg/dL (0.2-1.0) H 01/06/25 14:40 AST 40 U/L (15-37) H 01/06/25 14:40 ALT 33 U/L (16-61) 01/06/25 14:40 Alkaline Phosphatase 107 U/L (45-117) 01/06/25 14:40 Home Medications: Atorvastatin Calcium [Lipitor] 80 mg PO DAILY 01/06/25 Gabapentin 100 mg PO BID 01/06/25 Losartan Potassium 25 mg PO DAILY 01/06/25 Amox/Clavulanate [Augmentin 875-125 Tab] 875 mg PO BID 5 Days #10 tab 01/09/25 Hydrocodone 5/APAP 325 [[place] 5/325*] 1 tab PO Q8H PRN #15 tab 01/09/25 predniSONE [Deltasone*] See Rx Instructions .ROUTE .COMPLEX #26 tab 01/09/25 New Medications: Amox/Clavulanate [Augmentin 875-125 Tab] 875 mg PO BID 5 Days #10 tab predniSONE [Deltasone*] See Rx Instructions .ROUTE .COMPLEX #26 tab Hydrocodone 5/APAP 325 [[place] 5/325*] 1 tab PO Q8H PRN #15 tab PRN Reason: Pain Scale 5-7 (Moderate) Physician Discharge Instructions: Patient was admitted to the hospital for swelling, erythema of the right lower extremity with right knee pain/effusion. Joint aspiration was performed, fluid was yellow, turbid 38,620 white blood cells were present with 2894 red blood cells, 98% neutrophils. Patient was on empiric antibiotics, there were fluid crystals present on the aspirate. Patient was treated with steroids and empiric antibiotics with improvement in his symptoms, he is remained afebrile, he was seen by orthopedics who suspect an inflammatory arthritis/pseudogout. Blood cultures were without growth for 24 hours and there is no growth on the right knee fluid aspirate. Patient is stable for discharge and outpatient follow-up with orthopedics in 1 to 2 weeks Walker was obtained and given to patient to assist with ambulation as he has increased pain. He has noted severe arthritis in both knees and planning on pursuing knee replacement in the future. Patient is on hydrochlorothiazide, following this medication at this time until follow-up with PCP as it can contribute to increased uric acid levels and increase risk of gout. Diet: Regular Activity: Ad ray (walker) Followup: Jeremie Jacobson MD [ACTIVE - CAN ADMIT] - 1-2 Weeks Suki Salas [Primary Care Provider] - 1-2 Weeks Time spent managing pt's care (in minutes): 46
--- NOTE | 2025-01-16 11:21 | CON ---
Date of Consultation: 01/08/2025 Reason For Consultation: Bilateral knee pain. History Of Present Illness: The patient came in on January 06 with increased pain and swelling of his lower extremities. He was seen in the emergency room and had an aspiration that demonstrated calciu m pyrophosphate crystals. He was admitted to the floor and treated with steroids as well as cefepime given some erythema in his lower extremity. The patient reports some improvement of his symptoms. The patient also reports some ankle pain. The pain worsened with prolonged standing and walking. He has been seen in my clinic and recently had had corticosteroid injections and we have discussed tota l knee arthroplasty later this year. Denies any other musculoskeletal complaints at this time. Past Medical History: Includes hypertension. Social History: Denies tobacco use. Reports occasional alcohol use. Denies drug use. Lives at [facility]. Physical Examination: General: No apparent distress. HEENT: Normocephalic, atraumatic. Neck: Supple. Cardiovascular: Brisk cap refill to all digits. Chest: Nonlabored breathing. Abdomen: Nondistended. Psychiatric: Responsive to exam. Musculoskeletal: Right lower extremity: Effusion of the right knee. No significant erythema noted. Pain at extremes of motion. Stable to varus and valgus stresses. Right ankle with some swelling. No significant erythema noted. He has some mild pain with range of motion. Neurovascularly intact distally. Left lower extremity: Mild effusion. Functional range of motion without pain. Stable to varus and valgus stresses. Neurovascularly intact distally. Imaging: X-rays of the knees demonstrate severe osteoarthritis. Assessment And Plan: Pankaj is a 69-year-old male with bilateral knee osteoarthritis and pseudogout. I discussed with the patient at length his diagnosis as well as treatment plan. Recommend repeat continued nonoperative management including NSAIDs and steroids as needed. The patient recently had a corticosteroid injection. I did not recommend a repeat corticosteroid injection at this time. The patient will follow up in my clinic for re-evaluation and scheduling a total knee replacement in the future. The patient may be weightbearing as tolerated on his bilateral lower extremities and contin ue medical management per hospital service. CV/MODL Voice ID: [id number] Report ID: [id number]
== END 2025-01-09 14:30 | disposition home or self-care (01) | DRG 565 ==
LOC: ER 13:05 → ERHOLD 17:16 → 4TH 17:47 → OBSVTOIN 01-08 07:48
PROVIDERS: ADMIT Internal Medicine; ATTEND Hospitalist
PROC: 0S9C3ZZ Drainage of Right Knee Joint, Percutaneous Approach (ICD-10-PCS; principal; 2025-01-08)
DX: M25.461 Effusion, right knee (principal); L03.115 Cellulitis of right lower limb; L03.116 Cellulitis of left lower limb; I10 Essential (primary) hypertension; M10.9 Gout, unspecified; M17.0 Bilateral primary osteoarthritis of knee; R73.9 Hyperglycemia, unspecified; R74.01 Elevation of levels of liver transaminase levels; Z87.891 Personal history of nicotine dependence
CPT/HCPCS: 36415; 80048; 80053; 81001; 83605; 83735; 84100; 84550; 85025; 87040; 87070; 89050; 89060; 93971; 96365; 96367; 96375; 97161; 99285; G0378; J0692; J1644; J1938; J2003; J2270; J2405; J2919; J3370; J7040; J7050; J7512